=== PATIENT | male | born 1960 | race Caucasian/White ===

== ENCOUNTER 2023-06-23 21:01 | Inpatient (IN) ==
--- OUTSIDE RECORDS SUMMARY | 2023-06-23 21:05 | External Medical Summary | Summary of Care ---
Author Name Unknown Organization [facility] Address [address] [place] [address] Phone [phone] Care Team Providers Care Electrician Chief Name Role Phone Williams Alston MD Primary Care Provide r Reason for Visit * Reason Onset Date Comments Appointment 02/26/2023 Colonoscopy Encounter Details Date Type Department Care Team Description 02/26/[address] [id number] Williams Alston MD [address] [place] [address] [place] [address] Appointment (Colonoscopy ) Allergies Active Allergy Reactions Severity Noted Date Comments Other - Drugs Unknown 04/06/2004 horse serum Penicillins Hives 04/06/2004 documented as of this encounter (statuses as of 02/26/2023) Medications Medication Sig Dispensed Refills Start Date End Date Status Aspirin 81 MG Oral Tablet Delayed Release Take 1 Tablet by mouth in the morning. Every other day . 0 Active Atorvastatin Calcium 10 MG Oral Tablet (Lipitor)Indications:M ixed dyslipidemia TAKE 1 TABLET EVERY OTHER DAY 45 Tablet 1 01/08/2023 Active Hospital, Clinic, or Other Facility Administered Medication Ordered Dose Route Frequency Start Date End Date Status albuterol sulfate (PROVENTIL) (2.5 MG/3ML) 0.083% inhalation solution 2.5 mgIndications:COPD, mild (HCC) 2.5 mg NEBULIZER Q4H PRN 01/18/2017 Active documented as of this encounter (statuses as of 02/26/2023) Active Problems Problem Noted Date COPD, group A, by GOLD 2017 classificati on 11/15/2020 Overview: Per COPD GOLD Classification Hepatitis C virus infection cured after antiviral drug therapy 06/01/2020 Overview: HCV treated; SVR confirmed: 05/30/2020 Fatty liver 01/19/2019 Persistent insomnia 09/24/2012 Reflux esophagitis 04/06/2004 Mixed dyslipidemia Tobacco use disorder documented as of this encounter (statuses as of 02/26/2023) Resolved Problems Problem Noted Date Resolved Date Chronic hepatitis C without hepatic coma 019 06/01/2020 Overview: HCV treated; SVR confirmed: 05/30/2020 Elevated LFTs 07/16/2018 06/01/2020 Overview: HCV treated; SVR confirmed: 05/30/2020 Tubular adenoma of colon 05/05/2014 018 COPD, mild 09/24/2012 11/17/2020 Overview: Per COPD GOLD Classification Cervicalgia 04/06/2004 05/07/2018 Asthma in COPD 09/24/2012 documented as of this encounter (statuses as of 02/26/2023) Immunizations Name Administration Dates Next Due COVID-19 mRNA, LNP-s, No Pre serve, 2-Dose Series ([employer]) 10/19/2020,09/05/2020 HEP A - Hepatitis A (Adult > 18 yrs) 08/20/2019, 02/19/2019 Hepatitis B, 20+ yrs 08/20/2019,03/23/2019,02/19 PPD 04/20/2021 Pneumococcal Conjugate Vacci ne, 20-valent ([id number]) 06/26/2022 Pneumococcal Polysaccharide PPV23 (Pneumovax) 04/12/2014 Seasonal Influenza, PF, 6 mo ns & Above, IM , (Flulaval) 02/26/2023,06/26/2022 TDAP (age 10 and older)(Boostrix) 11/21/2015 TDAP (age 11 and older)(Adacel) 04/01/2008 documented as of this encounter Social History Tobacco Use Types Packs/Day Years Used Date Smoking Tobacco: Every Day Cigarettes 0.5 30 Smokeless Tobacco: Never Alcohol Use Standard Drinks/Week Comments No 0 (1 standard drink = 0.6 oz pur e alcohol) Food Insecurity Answer Date Recorded Within the past 12 months, y ou worried that your food would run out before you got money to buy more. Never true 09/23/2019 Within the past 12 months, t he food you bought just didn't last and you didn't have money to get more. Never true 09/23/2019 Sex Assigned at Date Recorded Not on file Job Start Date Occupation Industry Not on file Not on file Not on file documented as of this encounter Miscellaneous Notes * Telephone Encounter - DERICK Schmidt - 02/26/2023 9:34 AM EDT Jus muñoz scheduled for colonoscopy for: Special screening for malignant neoplasms, colon [Z12.11] documented in this encounter Plan of Treatment Upcoming Encounters Date Type Specialty Care Team Description 10/22/2023 Office Visit Family Medicine Williams Alston MD [address] [place] [address] [place] [facility] [address] Scheduled Procedures Name Priority Associated Diagnoses Date/Ti me COLONOSCOPY FLEXIBLE PROXIMAL DIAGNOSTIC Recall History of colon polyps Health Maintenance Due Date Last Done Comments DISCUSS TOBACCO CESSATION (REFER TO SMARTSET #8873) 1960 Alpha-1 Antitrypsin 12/21/1977 Zoster Vaccines (1 of 2) 12/21/2009 Depression Screening 07/14/2020 07/14/2019 COVID-19 Vaccine (3 - Pfizer series) 12/14/2020 10/19/2020, 09/05/2020 COLONOSCOPY-EVERY 3 YRS AGES 18-100 03/14/2023 03/14/2020, 03/14/2020, 01/19/2016, Additional history exists O2 ASSESSMENT COMPLETED IN PAST YEAR FOR COPD 07/10/2023 02/26/2023 Diabetes Screening 01/19/2025 01/19/2022, 1 07/31/2019, 02/26/2020, Additional history exists DTaP,Tdap,and Td Vaccines (3 - Td or Tdap) 11/20/2025 11/21/2015, 04/01/2008 Lipid Panel 01/19/2027 01/19/2022, 05/04, 08/31/2019, Additional history exists Hepatitis B Completed 08/20/2019, 03/04, 02/19/2019 COLONOSCOPY-EVERY 5 YRS AGES 18-100 Discontinued 03/14/2020, 03/14/2020, 01/19/2016, Additional history exists Pneumococcal Vaccine: Pediatrics (0 to 5 Years) and At-Risk Patients (6 to 64 Years) Completed 06/26/2022, 04/12/2014 Influenza Vaccine (FLU shot) Completed 02/26/2023, 06/26/2022 GARDASIL-HPV IMMUNIZATION SERIES Aged Out No longer eligible based on patient's age to complete this topic MENINGOCOCCAL (MENACTRA/MENVEO) Aged Out No longer eligible based on patient's age to complete this topic documented as of this encounter Medical Devices Not on filedocumented as of this encounter Care Teams Electrician Chief Relationship Specialty Start Date End Date Williams Alston MD [address] [place] [address] [facility] [id number] PCP - General Family Medicine 05/07/18 documented as of this encounter
--- OUTSIDE RECORDS SUMMARY | 2023-06-23 21:05 | External Medical Summary | Summary of Care ---
Author Name Unknown Organization [facility] Address [address] [place] [address] Phone [phone] Care Team Providers Care Gasser Machine Operator Name Role Phone Hortensia Alston MD Primary Care Provide r Reason for Visit * Reason Comments eRx-Medication Refill Encounter Details Date Type Department Care Team Description 01/07/2023 Refill Family [address] [address] Hortensia Alston MD [address] [place], [place] [address] [id number] Mixed dyslipidemia Allergies Active Allergy Reactions Severity Noted Date Comments Other - Drugs Unknown 04/06/2004 horse serum Penicillins Hives 04/06/2004 documented as of this encounter (statuses as of 01/08/2023) Medications Medication Sig Dispensed Refills Start Date End Date Status Aspirin 81 MG Oral Tablet Delayed Release Take 1 Tablet by mouth in the morning. Every other day . 0 Active predniSONE 20 MG Oral Tablet (Deltasone)Indicat ions:Acute midline low back pain with right-sided sciatica 2 tablets daily for 5 days then 1 tablet daily 15 Tablet 0 12/25/2022 Active Atorvastatin Calcium 10 MG Oral Tablet (Lipitor)Indicatio ns:Mixed dyslipidemia TAKE 1 TABLET EVERY OTHER DAY 45 Tablet 1 01/08/2023 Active Atorvastatin Calcium 10 MG Oral Tablet (Lipitor)Indicatio ns:Mixed dyslipidemia take 1 tablet every other day 45 Tablet 1 06/12/2022 01/08/2023 Discontinued Hospital, Clinic, or Other Facility Administered Medication Ordered Dose Route Frequency Start Date End Date Status albuterol sulfate (PROVENTIL) (2.5 MG/3ML) 0.083% inhalation solution 2.5 mgIndications:COPD, mild (HCC) 2.5 mg NEBULIZER Q4H PRN 01/18/2017 Active documented as of this encounter (statuses as of 01/08/2023) Active Problems Problem Noted Date COPD, group A, by GOLD 2017 classificati on 11/15/2020 Overview: Per COPD GOLD Classification Hepatitis C virus infection cured after antiviral drug therapy 06/01/2020 Overview: HCV treated; SVR confirmed: 05/30/2020 Fatty liver 01/19/2019 Persistent insomnia 09/24/2012 Reflux esophagitis 04/06/2004 Mixed dyslipidemia Tobacco use disorder documented as of this encounter (statuses as of 01/08/2023) Resolved Problems Problem Noted Date Resolved Date Chronic hepatitis C without hepatic coma 019 06/01/2020 Overview: HCV treated; SVR confirmed: 05/30/2020 Elevated LFTs 07/16/2018 06/01/2020 Overview: HCV treated; SVR confirmed: 05/30/2020 Tubular adenoma of colon 05/05/2014 018 COPD, mild 09/24/2012 11/17/2020 Overview: Per COPD GOLD Classification Cervicalgia 04/06/2004 05/07/2018 Asthma in COPD 09/24/2012 documented as of this encounter (statuses as of 01/08/2023) Immunizations Name Administration Dates Next Due COVID-19 mRNA, LNP-s, No Pre serve, 2-Dose Series ([employer]) 10/19/2020,09/05/2020 HEP A - Hepatitis A (Adult > 18 yrs) 08/20/2019, 02/19/2019 Hepatitis B, 20+ yrs 08/20/2019,03/23/2019,02/19 PPD 04/20/2021 Pneumococcal Conjugate Vacci ne, 20-valent ([id number]) 06/26/2022 Pneumococcal Polysaccharide PPV23 (Pneumovax) 04/12/2014 Seasonal Influenza, Quadriva lent, No Preserve, 6 Mons & Above, IM 06/26/2022 TDAP (age 10 and older)(Boostrix) 11/21/2015 TDAP [...] encounter Miscellaneous Notes * Telephone Encounter - Scott Lyons RPh - 01/08/2023 11:13 AM EDTSigned Prescriptions: Disp Refills Atorvastatin Calcium 10 MG Oral Tablet (Li*45 Tab*1 Sig: TAKE 1 TABLET EVERY OTHER DAYAuthorizing Provider: HORTENSIA ALSTON User: SCOTT LYONS- documented in this encounter Plan of Treatment Upcoming Encounters Date Type Specialty Care Team Description 02/01/2023 Office Visit Family Medicine Hortensia Alston MD [address] [place] [address] [place] [facility] [address] Scheduled Procedures Name Priority Associated Diagnoses Date/Ti me COLONOSCOPY FLEXIBLE PROXIMAL DIAGNOSTIC Recall History of colon polyps Health Maintenance Due Date Last Done Comments DISCUSS TOBACCO CESSATION (REFER TO SMARTSET #3291) 1960 Alpha-1 Antitrypsin 12/21/1977 Zoster Vaccines (1 of 2) 12/21/2009 Depression Screening, Annual for Pts 12 and Over 07/14/2020 07/14/2019 COVID-19 Vaccine (3 - Pfizer series) 12/14/2020 10/19/2020, 09/05/2020 Influenza Vaccine (FLU shot) (#1) 2023 06/26/2022 COLONOSCOPY-EVERY 3 YRS AGES 18-100 03/14/2023 03/14/2020, 03/14/2020, 01/19/2016, Additional history exists O2 ASSESSMENT COMPLETED IN PAST YEAR FOR COPD 07/10/2023 07/10/2022 Diabetes Screening 01/19/2025 01/19/2022, 1 07/31/2019, 02/26/2020, [...] (6 to 64 Years) Completed 06/26/2022, 04/12/2014 GARDASIL-HPV IMMUNIZATION SERIES Aged Out No longer eligible based on patient's age to complete this topic MENINGOCOCCAL (MENACTRA/MENVEO) Aged Out No longer eligible based on patient's age to complete this topic documented as of this encounter Medical Devices Not on filedocumented as of this encounter Visit Diagnoses Diagnosis Mixed dyslipidemia Mixed hyperlipidemia documented in this encounter Care Teams Gasser Machine Operator Relationship Specialty Start Date End Date Hortensia Alston MD [address] [place] [address] [place] [facility] [address] PCP - General Family Medicine 05/07/18 documented as of this encounter
--- OUTSIDE RECORDS SUMMARY | 2023-06-23 21:05 | External Medical Summary ---
Author Name Unknown Address Unknown Organization [id number]:[facility] - [address] [facility] [address] Laboratory Report Ordering Provider Test Date Status LAVON BAZAN 02/27/2023 07:52:26 Final Observation Date Value Abnormality Reference (Units ) Status Triglyceride 02/27/2023 07:52:26 123 <=174 ( mg/dL) Final Triglyceride Reference Range s (mg/dL):
<150 Acceptable
150-174 Borderline high
175-499 High
>=500 Very high Cholesterol 02/27/2023 07:52:26 149 <200 (mg /dL) Final Total Cholesterol Reference Ranges (mg/dL):
<200 Desirable
200-239 Borderline high
>=240 High HDL 02/27/2023 07:52:26 37 Below low normal >39 (mg/dL) Final HDL Cholesterol Reference Ra nges (mg/dL):
>=60 High (Desirable)
<50 Low (Undesirable) For Females
<40 Low (Undesirable) For Males NON-HDL CHOLESTEROL 02/27/2023 07:52:26 112 <=159 (mg/dL) Final Non-HDL Cholesterol Referenc e Range (mg/dL):
<100 Target level for high risk ASCVD patient
<130 Optimal for general population
130-159 Near optimal for general population
160-189 Borderline High
190-219 High
>=220 Very High LDL, (calculated) 02/27/2023 07:52:26 87 <= 129 (mg/dL) Final LDL Cholesterol Reference Ra nges (mg/dL):
<70 Target level for high risk ASCVD patient
<100 Optimal for general population
100-129 Near optimal for general population
130-159 Borderline high
160-189 High
>=190 Very high Performing Location [facility] - [address] [place] [id number]
--- OUTSIDE RECORDS SUMMARY | 2023-06-23 21:05 | External Medical Summary | Summary of Care ---
Author Name Unknown Organization [facility] Address [address] [place] [address] Phone [phone] Care Team Providers Care Information Analyst Name Role Phone Williams Alston MD Primary Care Provide r Reason for Referral * Ancillary Services (Within 30 days (routine)) - Authorized Specialty Diagnoses / Procedures Referred By Contac t Referred To Contact Gastroenterology Diagnoses Special screening for malignant neoplasms, colon Williams Alston MD [address] [place] [address] [place] [id number] Referral ID Status Reason Start Date Expiration Date Visits Requested Visits Authorized [id number] Authorized Ancillary Services Required 02/26/2023 999 999 Question Answer Referral Priority Within 30 days (routine) Comments ALERT: Do not order for pediatric patients (18 years or younger). Cancel off screen and order PEDS GASTROENTEROLOGY CONSULT (Type: 1 visit only-Evaluate and Treat) The following Pt. Instructions are available: - Gastro Colonoscopy Prep Instructions [[id number]] - Gastro Colonoscopy Prep Instructions (Lao Version) [[id number]] Go to the Pt. Instructions section within the Visit Navigator to access. Colonoscopy ASGE Guidelines: Average risk screening (begin at age 50, 10 year intervals) ADDITIONAL INFORMATION 1. Is the patient on Coumadin? No 2. Is the patient on Pradaxa? No Reason for Visit * Reason Onset Date Comments Re-Check Medication Administration 02/26/2023 Flu an d/or Pneumo Inj Encounter Details Date Type Department Care Team Description 02/26/2023 Office Visit Family Medicine [address] [address] Williams Alston MD [address] [place] [address] [place] [address] Mixed dyslipidemia*; Special screening for malignant neoplasms, colon; Need for prophylactic vaccination and inoculation against influenza; COPD, group A, by GOLD 2017 classification (HCC); Fatty liver; Tobacco use disorder Allergies Active Allergy Reactions Severity Noted Date [...] OTHER DAY 45 Tablet 1 01/08/2023 Active predniSONE 20 MG Oral Tablet (Deltasone)Indicat ions:Acute midline low back pain with right-sided sciatica 2 tablets daily for 5 days then 1 tablet daily 15 Tablet 0 12/25/2022 02/26/2023 Discontinued Hospital, Clinic, or Other Facility Administered [...] mRNA, LNP-s, No Pre serve, 2-Dose Series (Redicam) 10/19/2020,09/05/2020 HEP A - Hepatitis A (Adult > 18 yrs) 08/20/2019, 02/19/2019 Hepatitis B, 20+ yrs 08/20/2019,03/23/2019,02/19 PPD 04/20/2021 Pneumococcal Conjugate Vacci ne, 20-valent ([id number]) 06/26/2022 Pneumococcal Polysaccharide PPV23 (Pneumovax) 04/12/2014 Seasonal [...] on file documented as of this encounter Last Filed Vital Signs Vital Sign Reading Time Taken Comments Blood Pressure 118/72 02/26/2023 8:34 AM EDT Pulse 75 02/26/2023 8:34 AM EDT Temperature 36.6 C (97.8 F) 02/26/2023 8:34 AM ED T Respiratory Rate - - Oxygen Saturation 98% 02/26/2023 8:34 AM EDT Inhaled Oxygen Concentration - - Weight 94.3 kg (208 lb) 02/26/2023 8:34 AM EDT Height 165.1 cm (5' 5") 02/26/2023 8:34 AM EDT Body Mass Index 34.61 02/26/2023 8:34 AM EDT documented in this encounter Progress Notes * Williams Alston MD - 02/26/2023 8:40 AM EDT Subjective: Jus Castano is a 62 year old male. Chief Complaint Patient presents with Re-Check Medication Administration Flu and/or Pneumo Inj HPI: Brief Clinical History Mr. Castano is a 62 year old man last seen in Family Medicine 2 months ago (12-25-22). He has h/o COPD and COPD, group A, by GOLD 2017 classification (HCC). Has been having some joint stiffness. Loosens up after he moves around. Occasionally takes ibuprofen. Was seen December for sciatica and is improved now. No trouble with his breathing. Has cut back on smoking and has tried to quit multiple times. Has gone 4 days without smoking as the longest. He and his have both been trying. Declines Shingrix. Is not planning on getting COVID booster. Agrees to influenza vaccine today. Agrees to colonoscopy. Due for 3 year follow-up. Denies any heartburn. Lipid Panel Results: Results for orders placed or performed in visit on 06/07/12 LIPID PANEL Result Value Ref Range HOURS FASTING 12 hours Triglycerides 58 <200 mg/dL Cholesterol 111 <200 mg/dL HDL Cholesterol 40 >39 mg/dL Cholesterol-HDL Ratio 2.8 LDL Cholesterol 59 0 - 129 mg/dL Results for orders placed or performed in visit on 01/19/22 LIPID PANEL WITH DIRECT LDL IF TG IS HIGH Result Value Ref Range Triglycerides 162 <=174 mg/dL Cholesterol 168 <200 mg/dL HDL Cholesterol 38 (L) >39 mg/dL Non-HDL Cholesterol 130 <=159 mg/dL LDL Cholesterol 98 <=129 mg/dL ALT Results: Lab Results Component Value Date/Time ALT - [facility] 26 01/19/2022 09:20 AM ALT - [facility] 28 11/02/2020 12:07 PM ALT - [facility] 21 05/30/2020 11:30 AM ALT - [facility] 29 02/26/2020 02:57 PM ALT - [facility] 36 12/25/2019 02:50 PM Results for orders placed or performed in visit on 09/05/22 NM MYOCARDIAL PERFUSION IMAGING SPECT MULTIPLE STUDIES WITH PHARMACOLOGIC INTERVENTION Result Value Ref Range LEFT VENTRICULAR EJECTION FRACTION 67 % PMH: Patient Active Problem List Diagnosis Code Reflux esophagitis K21.00 Mixed dyslipidemia E78.2 Persistent insomnia G47.00 Tobacco use disorder F17.200 Fatty liver K76.0 Hepatitis C virus infection cured after antiviral drug therapy Z86.19 COPD, group A, by GOLD 2017 classification ([facility]) J44.9 Current Outpatient Medications Medication Sig Dispense Refill Aspirin 81 MG Oral Tablet Delayed Release Take 1 Tablet by mouth in the morning. Every other day . Atorvastatin Calcium 10 MG Oral Tablet (Lipitor) TAKE 1 TABLET EVERY OTHER DAY 45 Tablet 1 Current Facility-Administered Medications Medication Dose Route Frequency Provider Last Rate Last Admin albuterol sulfate (PROVENTIL) (2.5 MG/3ML) 0.083% inhalation solution 2.5 mg 2.5 mg Nebulizer Q4H PRN Annette Mahan PA-C 2.5 mg at 01/18/17 0901 Past Medical History: Diagnosis Date Asthma with COPD (chronic obstructive pulmonary disease) ([facility]) Cervicalgia [address] Grider Mixed dyslipidemia Persistent insomnia 09/24/2012 Reflux esophagitis 2004 Tobacco use disorder Tubular adenoma of colon 05/05/14 Past Surgical History: Procedure Laterality Date COLONOSCOPY, DIAGNOSTIC (RECTUM) 04/14/2013 COLONOSCOPY FLEXIBLE PROXIMAL DIAGNOSTIC performed by John Lorenz MD at ENDOSCOPY [facility] COLONOSCOPY, DIAGNOSTIC (RECTUM) 05/05/2014 adenomatous polyp/COLONOSCOPY FLEXIBLE PROXIMAL DIAGNOSTIC performed by John Lorenz MD at ENDOSCOPY [facility] COLONOSCOPY, DIAGNOSTIC (RECTUM) 01/19/2016 hyperplastic polyps, repeat 5 yrs/COLONOSCOPY FLEXIBLE PROXIMAL DIAGNOSTIC performed by John Lorenz MD at ENDOSCOPY [facility] COLONOSCOPY, DIAGNOSTIC (RECTUM) 03/14/2020 hyperplastic polyps, diverticulosis, repeat 3 yrs / COLONOSCOPY FLEXIBLE PROXIMAL DIAGNOSTIC performed by John Lorenz MD at ENDOSCOPY [facility] WITHOUT AIR WO KUB 04/07/2004 negative INFORMATION drill bit injury to left eye. INFORMATION 09/07/2014 lap hand assist R hemicolectomy - Dr. Ford Melton [facility] REMOVAL OF APPENDIX REMOVE GALLBLADDER Social History Socioeconomic History Marital status: Spouse name: Not on file Number of children: 2 Years of education: Not on file Highest education level: Not on file Occupational History Not on file Tobacco Use Smoking status: Every Day Packs/day: 0.50 Years: 30.00 Pack years: 15.00 Types: Cigarettes Smokeless tobacco: Never Vaping Use Vaping Use: Never used Substance and Sexual Activity Alcohol use: No Drug use: No Sexual activity: Yes Partners: Female Other Topics Concern Not on file Social History Narrative Not on file Social Determinants of Health Financial Resource Strain: Not on file Food Insecurity: Not on file Transportation Needs: Not on file Physical Activity: Not on file Stress: Not on file Social Connections: Not on file Intimate Partner Violence: Not on file Housing Stability: Not on file Review of patient's allergies indicates: Allergen Reactions Other - Drugs Unknown horse serum Penicillins Hives Objective: BP 118/72 | Pulse 75 | Temp 36.6 C (97.8 F) (Tympanic) | Ht 1.651 m (5' 5") | Wt 94.3 kg (208 lb) | SpO2 98% | BMI 34.61 kg/m | BSA 2.08 m Physical Exam: General: alert, healthy, no distress, well nourished, and well developed Head: Normocephalic, No masses, lesions, tenderness or abnormalities Eye Exam: PERRLA, extraocular movements intact, conjunctiva are pink and non- injected, sclera clear Ears: External ears normal, Canals clear, TM's Normal Nose: no mucosal erythema, no mucosal edema, no purulent discharge Oropharynx: no exudate, no erythema, lips, buccal mucosa, and tongue normal, and mucous membranes are moist Neck: supple, no adenopathy, no bruits Heart: regular rate & rhythm, no murmur, and no gallops Lungs: chest symmetric with normal AP diameter, no chest deformities noted, no chest wall tenderness, lungs clear to auscultation Extremities: no edema, no clubbing, no cyanosis Neuro Exam: alert & oriented x 3 with fluent speech, no focal motor/sensory deficits, gait normal Extensive ROS Constitutional (f/c/wt/vision/hearing): Negative Resp (cough/sob/amado): see above hpi CV (cp/palp/fluttering/diaphoresis/amado/pnd):Negative GI (n/v/d/hrtburn): Negative Endo (hair/cold or heat intol/ 3 p's): Negative Neuro (shaking/weak/fatigu/parasthesi/): Negative Skin (rash/easy bruis/xerosis): Negative Psy (si/hi/halluc/): Negative (nocturia/hesit/drib/sexual review): Negative Lymph (swollen glands/b sx's/: Negative ASSESSMENT: Mixed dyslipidemia (Primary)--controlled. Due for labs. Will return tomorrow for fasting labs. - COMPREHENSIVE METABOLIC PANEL; Future; Expected date: 02/26/2023 - LIPID PANEL WITH DIRECT LDL IF TG IS HIGH; Future; Expected date: 02/26/2023 Special screening for malignant neoplasms, colon--due for 3 year follow-up. Has h/o polyps. - COLONOSCOPY, GI REFERRAL OP Need for prophylactic vaccination and inoculation against influenza - INFLUENZA VACC, QUAD, PF, 6 MONTHS & UP, 0.5 ML, IM COPD, group A, by GOLD 2017 classification (HCC)--no current breathing issues. Continues to work onquitting smoking. Fatty liver--stable. Check labs Tobacco use disorder--counseled on quitting. Follow Up: Return in about 6 months (around 08/27/2023). PLAN: Continue present medication(s): Study(ies) ordered: Colonoscopy Immunization(s) ordered: Influenza vaccine Schedule labs: CMP and Lipid panel Patient education: counseled on smoking cessation and vaccines. Follow up: in 6 month(s). Williams Alston MD documented in this encounter Nursing Notes * Tania Samuels LPN - 02/26/2023 8:34 AM EDT 6 month recheck Joint stiffness documented in this encounter Plan of Treatment Scheduled Orders Name Type Priority Associated Diagnoses Orde r Schedule COMPREHENSIVE METABOLIC PANEL Lab Routine Mixed dyslipidemia Expected: 02/26/2023 (Approximate), Expires: 02/26/2024 LIPID PANEL WITH DIRECT LDL IF TG IS HIGH Lab Routine Mixed dyslipidemia Expected: 02/26/2023, Expires: 02/27/2024 Scheduled Procedures Name Priority Associated Diagnoses Date/Ti me COLONOSCOPY FLEXIBLE PROXIMAL DIAGNOSTIC Recall History of colon polyps Scheduled Referrals Name Type Priority Associated Diagnoses Orde r Schedule COLONOSCOPY, GI REFERRAL OP Referral Within 30 days (routine) Special screening for malignant neoplasms, colon Ordered: 02/26/2023 Health Maintenance Due Date Last Done Comments DISCUSS TOBACCO CESSATION (REFER TO SMARTSET #[id number]) 1960 Alpha-1 Antitrypsin 12/21/1977 Zoster Vaccines (1 [...] of this encounter Visit Diagnoses Diagnosis Mixed dyslipidemia- Primary Mixed hyperlipidemia Special screening for malignant neoplasms, colon Need for prophylactic vaccination and inoculation against influenza COPD, group A, by GOLD 2017 classification (HCC) Fatty liver Other chronic nonalcoholic liver disease Tobacco use disorder documented in this encounter Care Teams Information Analyst Relationship Specialty Start Date End Date Williams lAston MD [address] [place] [address] [place] [address] PCP - General Family Medicine 05/07/18 documented as of this encounter
--- OUTSIDE RECORDS SUMMARY | 2023-06-23 21:05 | External Medical Summary | Summary of Care ---
Author Name Unknown Organization [facility] Address [address] [place] [address] Phone [phone] Care Team Providers Care Commercial Lending Assistant Name Role Phone Williams Alston MD Primary Care Provide r Reason for Visit * Reason Onset Date Comments Appointment 02/26/2023 Colonoscopy Encounter Details Date Type Department Care Team Description 02/26/[address] [address] Williams Alston MD [address] [place] [address] [place] [address] Appointment (Colonoscopy ) Allergies Active Allergy Reactions [...] mRNA, LNP-s, No Pre serve, 2-Dose Series ([employer]) 10/19/2020,09/05/2020 HEP A - Hepatitis A (Adult > 18 yrs) 08/20/2019, 02/19/2019 Hepatitis B, 20+ yrs 08/20/2019,03/23/2019,02/19 PPD 04/20/2021 Pneumococcal Conjugate Vacci ne, 20-valent ([id number]) 06/26/2022 Pneumococcal Polysaccharide PPV23 (Pneumovax) 04/12/2014 Seasonal [...] Miscellaneous Notes * Telephone Encounter - DERICK Corbin - 02/26/2023 11:19 AM EDT Spoke to pt, colonoscopy scheduled on 07/04 cassidy nitesh * Telephone Encounter - DERICK Schmidt - 02/26/2023 9:34 AM EDT Jus muñoz scheduled for colonoscopy for: Special screening for malignant neoplasms, colon [Z12.11] documented in this encounter Plan of Treatment Upcoming Encounters Date Type Specialty Care Team Description 07/04/2023 Hospital Encounter Endoscopy John Lorenz MD [address] [place] [address] 07/04/2023 Surgery Endoscopy John Lorenz MD [address] [place] [address] COLONOSCOPY FLEXIBLE PROXIMAL DIAGNOSTIC 10/22/2023 Office Visit Family Medicine Williams Alston MD [address] [place] [address] [place] [address] Scheduled Procedures Name Priority Associated Diagnoses Date/Ti me COLONOSCOPY FLEXIBLE PROXIMAL DIAGNOSTIC Recall History of colon polyps Special screening for malignant neoplasms, colon 07/04/2023 8:30 AM EST Health Maintenance Due Date Last Done Comments DISCUSS TOBACCO CESSATION (REFER TO SMARTSET #[id number]) 1960 Alpha-1 Antitrypsin 12/21/1977 Zoster Vaccines (1 [...] filedocumented as of this encounter Care Teams Commercial Lending Assistant Relationship Specialty Start Date End Date Williams Alston MD [address] [place] [address] [place] [address] PCP - General Family Medicine 05/07/18 documented as of this encounter
--- OUTSIDE RECORDS SUMMARY | 2023-06-23 21:05 | External Medical Summary ---
Author Name Unknown Address Unknown Organization K[facility] - [address] [place] [address] Laboratory Report Ordering Provider Test Date Status LAVON BAZAN 02/27/2023 07:52:26 Final Observation Date Value Abnormality Reference (Units ) Status BUN 02/27/2023 07:52:26 17 6-20 (mg/dL) Final Creatinine 02/27/2023 07:52:26 0.9 0.6-1.2 (mg/dL) Final Glomerular filtration rate/1.73 sq M.predicted [Volume Rate/Area] in Serum, Plasma or Blood by Creatinine-based formula (CKD-EPI) 02/27/2023 07:52:26 >90 >=60 (mL/min) Final eGFR is calculated based on the CKD-EPI 2020 equation SODIUM 02/27/2023 07:52:26 137 135-146 (m mol/L) Final Potassium 02/27/2023 07:52:26 4.4 3.5-5.1 (m mol/L) Final Cl 02/27/2023 07:52:26 104 98-107 (mm ol/L) Final CO2 02/27/2023 07:52:26 24 22-32 (mmo l/L) Final Anion gap 02/27/2023 07:52:26 9 7-15 (mmol /L) Final Glucose 02/27/2023 07:52:26 101 70-120 (mg /dL) Final Albumin 02/27/2023 07:52:26 4.5 3.8-5.0 (g /dL) Final AST (Aspartate aminotransferase) 02/27/2023 07:52:26 24 10-50 (U/L) Final Alk Phos 02/27/2023 07:52:26 70 35-130 (U/ L) Final Bilirubin, Total 02/27/2023 07:52:26 0.6 <=1 .2 (mg/dL) Final Calcium 02/27/2023 07:52:26 9.4 8.4-10.2 ( mg/dL) Final Protein 02/27/2023 07:52:26 6.6 6.0-8.3 (g /dL) Final ALT (Alanine aminotransferase) 02/27/2023 07:52:26 38 10-50 (U/L) Final Performing Location [facility] [place] [address] [facility] [address]
[2023-06-23] MEDS ORDERED: MoRPHine SULFATE 4 MG/ML 1 ML CARP\\VIAL IV STA (21:10)
[2023-06-23] MEDS ORDERED: SODIUM CHLORIDE 0.9% 500 ML IV STA (21:10)
[2023-06-23] MEDS ORDERED: ONDANSETRON INJ 2 MG/ML 2 ML VIAL IV STA (21:15)
--- NOTE | 2023-06-23 21:15 | Emergency Department Note ---
Impression & Plan STEMI (ST elevation myocardial infarction), Current smoker, Hyperglycemia ED Provider Note NAME: BINH SUTHERLAND AGE: 62 SEX: M : 1960 ARRIVES VIA: Ambulance INFORMANT: Patient, ED PROVIDER(S): Jaylen Myers MD CHIEF COMPLAINT: Chest pain MEDICAL DECISION MAKING: Patient presented due to concern for chest pain. I did review prehospital EKGs which did show possible peaked T waves in V2 and V3. No obvious STEMI. Patient's history was concerning and repeat EKGs were obtained at presentation as well as another repeat minutes thereafter. The patient was ordered blood work chest x-ray as well as nitro and morphine. The patient did progress to show a STEMI on second EKG. Code heart alert was initiated. The patient did have angiographies ordered in the event that this was not a STEMI and potentially other pathology given the report of slurred speech although upon presentation the patient did not have any evidence of strokelike symptoms on exam and thus these were canceled. I did reassess the patient whose pain had improved from about an 8 to a 5. I did speak with the class a regional truck driver Dr. Burciaga who agreed with heparin but deferred any additional antiplatelet therapy until that he was in the Chief Business Officer. Heparin was ordered. I did speak with the on-call hospitalist Dr. Whaley who did make the intensive care unit where [facility]. Patient's blood work shows a white count of 13 with mild anemia hemoglobin 13.6. Platelet count is unremarkable. Kidney function unremarkable with prerenal azotemia. Blood sugar 196. Initial troponin not elevated. Critical Care: I have personally spent 35 minutes of critical care time in direct management of this patient. This includes bedside care, interpretation of diagnostic studies, and testing, discussion with consultants, patient, and family members, and other require inpatient management activities. This 35 minutes is in excess of all separately billable procedures. Discussion w/ other healthcare providers: Dr. Burciaga class a regional truck driver Dr. Whaley inpatient medicine service [facility] with Dr. Miranda intensive care unit Prior /Outside records reviewed: none Differential diagnosis: Cardiac ischemia, aortic dissection, pulmonary embolism, pneumothorax, pneumonia, pericarditis, myocarditis, GERD, cholecystitis, pancreatitis, musculoskeletal, as well as other pathologies were considered. Diagnostics, as interpreted by me: ECG: Normal sinus rhythm, rate of 64, normal intervals, normal axis, Q waves noted anteriorly with peaked T waves V2 through V4. Repeat EKG interpreted by me Sinus, rate of 66, normal intervals, normal axis, worsening elevation in V2 V3 with concavity noted in V4 acute STEMI Cardiac monitoring: An order was placed for continuous cardiac monitoring. The monitor shows a rate of 64 with sinus rhythm. Patient was placed on pulse oximetry Medical decision rules: Heart score Imaging studies: I informally interpreted the patient's chest x-ray which shows cardiomegaly without obvious pneumonia or pneumothorax with formal report to follow. HPI: Patient presents due to concern for chest pain that began around 8pm this evening while watching football. Patient states that he went to take shower and that the pain seemed to get worse. Patient states that the pain was left-sided did go to his arm neck and jaw. reported that he had some slurred speech at the time. The patient did feel as though he was having terrible indigestion which caused him to vomit. The patient did receive 324 of aspirin as well as a nitro in route. He does not think that this helped with his pain. The patient denies any cough or fever. He does use tobacco. Patient denies any falls or trauma. Patient denies any leg swelling or calf pain no prior history of DVT or PE PAST MEDICAL HISTORY: See Below PAST SURGICAL HISTORY: See Below SOCIAL HISTORY: See Below HOME MEDICATIONS: See Below ALLERGIES: See Below VITALS: See Below PHYSICAL EXAMINATION: GENERAL: Uncomfortable in appearance. EYE EXAM: Normal conjunctiva. PERRL, no anisocoria and EOM's grossly intact w/o pain. OROPHARYNX: Moist mucus membranes, grossly normal dentition. NECK: Supple, no nuchal rigidity, no adenopathy, non-tender. No signs of meningismus. FROM of the neck with good chin to chest and neck extension. No stridor. LUNGS: Clear to auscultation. Normal chest wall mechanics. HEART: NSR, no MRG. ABDOMEN: Abdomen soft, non-tender, no masses, no rebound or guarding. BACK: No CVA TTP. SKIN: No rashes and no bruising. UPPER EXTREMITIES: Upper extremities are grossly normal. LOWER EXTREMITIES: Grossly normal, no edema. NEURO EXAM: A&O x3, cranial nerves II-XII grossly intact, normal speech, moves all 4 extremities. No sensory deficits. 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: No Beliefs That Will Affect Care: None Current Living Situation: Spouse Current Living Situation Comment: with Audrey Feels Safe at Home: Yes Safety Concerns: Feels Safe At This Time Assistive Devices: Denture - Upper and Glasses Assistive Devices Comment: At home Allergies Allergies Allergy/AdvReac Type Severity Reaction Status Date / Time Penicillins Allergy Intermediate HIVES Verified 06/23/23 23:02 Home Meds Home Medications Medication Instructions Recorded Confirmed aspirin 81 mg tablet,delayed 81 mg PO DAILY 06/23/23 06/23/23 release atorvastatin 10 mg tablet 10 mg PO DAILY 06/23/23 06/23/23 Results & Data (ED) Vital Signs Vital Signs - 24 hr 06/23/23 21:05 06/23/23 21:05 06/23/23 21:15 Temperature 36.6 C Temperature Source Oral Pulse Rate 77 62 Pulse Rate [Apical] Pulse Rate from SpO2 Sensor Pulse Rhythm Regular Regular Pulse Rhythm [Apical] Pulse Strength Normal Pulse Strength [Apical] Respiratory Rate 18 16 Respiratory Effort / Characteristics Non-Labored Spontaneous Respiratory Depth Normal Respiratory Pattern Regular Blood Pressure 165/93 H Blood Pressure [Left Arm] Blood Pressure Mean 117 Blood Pressure Mean [Left Arm] Blood Pressure Position Semi-fowlers Blood Pressure Position [Left Arm] Pulse Oximetry 97 97 97 Oxygen Delivery Method Room Air Room Air Room Air Oxygen Flow Rate 0 Sepsis Recent Fever Within 48 Hours No Sepsis New/Unexplained Change in Mental Status No Sepsis Action Taken by Nursing No Action Required 06/23/23 21:15 06/23/23 21:20 06/23/23 21:30 Temperature Temperature Source Pulse Rate 73 86 Pulse Rate [Apical] Pulse Rate from SpO2 Sensor 80 Pulse Rhythm Pulse Rhythm [Apical] Pulse Strength Pulse Strength [Apical] Respiratory Rate 25 H Respiratory Effort / Characteristics Respiratory Depth Respiratory Pattern Blood Pressure 149/81 H Blood Pressure [Left Arm] Blood Pressure Mean 110 Blood Pressure Mean [Left Arm] Blood Pressure Position Blood Pressure Position [Left Arm] Pulse Oximetry 97 Oxygen Delivery Method Oxygen Flow Rate Sepsis Recent Fever Within 48 Hours Sepsis New/Unexplained Change in Mental Status Sepsis Action Taken by Nursing 06/23/23 21:30 06/23/23 21:38 06/23/23 21:40 Temperature Temperature Source Pulse Rate 62 65 Pulse Rate [Apical] 67 Pulse Rate from SpO2 Sensor 62 64 Pulse Rhythm Pulse Rhythm [Apical] Regular Pulse Strength Pulse Strength [Apical] Normal Respiratory Rate 31 H 18 17 Respiratory Effort / Characteristics Non-Labored Spontaneous Respiratory Depth Normal Respiratory Pattern Regular Blood Pressure Blood Pressure [Left Arm] 149/81 H Blood Pressure Mean Blood Pressure Mean [Left Arm] 103 Blood Pressure Position Blood Pressure Position [Left Arm] Semi-fowlers Pulse Oximetry 98 97 95 Oxygen Delivery Method Room Air Oxygen Flow Rate Sepsis Recent Fever Within 48 Hours Sepsis New/Unexplained Change in Mental Status Sepsis Action Taken by Nursing 06/23/23 21:40 06/23/23 21:41 06/23/23 21:41 Temperature 36.6 C Temperature Source Oral Pulse Rate 67 62 Pulse Rate [Apical] Pulse Rate from SpO2 Sensor 63 Pulse Rhythm Pulse Rhythm [Apical] Pulse Strength Pulse Strength [Apical] Respiratory Rate 18 20 Respiratory Effort / Characteristics Respiratory Depth Respiratory Pattern Blood Pressure 147/91 H 147/91 H Blood Pressure [Left Arm] Blood Pressure Mean 110 Blood Pressure Mean [Left Arm] Blood Pressure Position Blood Pressure Position [Left Arm] Pulse Oximetry 98 99 Oxygen Delivery Method Room Air Oxygen Flow Rate Sepsis Recent Fever Within 48 Hours Sepsis New/Unexplained Change in Mental Status Sepsis Action Taken by Usp Medications Current Medication List: was personally reviewed by me Laboratory Data Attestation: I reviewed the patient's lab results. 06/23/23 21:07 06/23/23 21:07 Lab Results 06/23/23 06/23/23 Range/Units 21:07 21:11 WBC 13.09 H (4.8-10.8) K/ul RBC 4.30 L (4.70-6.10) M/uL Hgb 13.6 L (14.0-18.0) g/dl POC Hgb 13.3 L (14.0-18.0) g/dl Hct 39.8 L (42.0-52.0) % POC Hct 39 L (42-52) % MCV 92.6 (80.0-100.0) fL MCH 31.6 (25.0-34.0) pg MCHC 34.2 (32.0-36.0) g/dL RDW Std Deviation 43.6 (36.4-46.3) fL RDW Coeff of Eddie 12.9 (11.5-14.5) % Plt Count 237 (130-400) K/uL MPV 9.6 (9.4-12.4) fL Immature Gran % (Auto) 0.5 % Neut % (Auto) 56.4 % Lymph % (Auto) 33.2 % [place] % (Auto) 6.7 % Eos % (Auto) 2.6 % Baso % (Auto) 0.6 % Neut # (Auto) 7.38 H (1.40-6.50) K/uL Lymph # (Auto) 4.34 H (1.20-3.40) K/uL [place] # (Auto) 0.88 H (0.11-0.59) K/uL Eos # (Auto) 0.34 (0.00-0.50) K/uL Baso # (Auto) 0.08 (0.00-0.20) K/uL Immature Gran # (Auto) 0.07 (0.01-0.20) K/uL PT 10.6 (9.0-12.0) Seconds INR 1.0 (0.9-1.1) APTT 22 (21-31) Seconds PTT Ratio 0.8 POC Sodium 139 (135-144) mmol/L Sodium 138 (136-145) mmol/L POC Potassium 3.7 (3.3-5.0) mmol/L Potassium 3.7 (3.5-5.1) mmol/L POC Chloride 102 (101-112) mmol/L Chloride 103 (98-107) mmol/L Carbon Dioxide 27 (21-32) mmol/L POC Total CO2 27 (24-31) mmol/L Anion Gap 8 (3-11) POC Anion Gap 14.0 L (16-25) mmol/L POC BUN 23 H (7-18) mg/dl BUN 26 H (6-23) mg/dl Creatinine 1.16 (0.6-1.4) mg/dl POC Creatinine 1.2 (0.6-1.3) mg/dl Est Cr Clr Drug Dosing 71.5 ml/min Est GFR ( Amer) 77.2 ml/min Est GFR (Non-Af Amer) 66.7 ml/min BUN/Creatinine Ratio 22.4 H (10-20) Glucose 196 H (70-99(Fasting)) mg/dl POC Glucose (other) 188 H (70-99) mg/dl Calcium 9.5 (8.6-10.3) mg/dl POC Ioniz Calcium Billie 1.17 (1.12-1.32) mmol/l Total Bilirubin 0.4 (0.2-1.0) mg/dl AST 15 (13-39) U/L ALT 25 (7-52) U/L Alkaline Phosphatase 60 (34-104) U/L Troponin I High Sens 13.6 (0-20) pg/ml Total Protein 7.0 (6.0-8.3) gm/dl Albumin 4.2 (3.4-5.0) gm/dl Globulin 2.8 (2.5-4.0) gm/dl Albumin/Globulin Ratio 1.5 (0.9-2) Lipase 24 (11-82) U/L Administered Medications Nitroglycerin (Nitroglycerin Sl 0.4 Mg/Tab Tab) 0.4 mg SL Q5M PRN PRN Reason: Chest Pain Stop: 07/23/23 21:09 Last Admin: 06/23/23 21:30 Dose: 0.4 mg Documented By: Admin: 06/23/23 21:16 Dose: 0.4 mg Documented By: EV Discontinued Medications Diphenhydramine HCl (Diphenhydramine 50 Mg/Ml Vial) Confirm Administered Dose 50 mg .ROUTE .STK-MED ONE Stop: 06/23/23 22:03 Last Admin: 06/23/23 22:16 Dose: 25 mg Documented By: KENYATTA Fentanyl Citrate (Fentanyl Citrate Pf 100 Mcg/2 Ml Vial) Confirm Administered Dose 100 mcg .ROUTE .STK-MED ONE Stop: 06/23/23 21:37 Last Increment: 06/23/23 22:16 Dose: 50 mcg Documented By: KENYATTA Heparin Sodium (Porcine) (Heparin Sod (Porcine) 1000 Unit/Ml) 5,000 units IV NOW ONE Stop: 06/23/23 21:21 Last Admin: 06/23/23 21:30 Dose: 5,000 units Documented By: VE Co-signed By: GLORIA Heparin Sodium (Porcine) (Heparin (Porcine) 1000 Unit/Ml 10 Ml (Chief Business Officer Use Only)) Confirm Administered Dose 10,000 units .ROUTE .STK-MED ONE Stop: 06/23/23 21:36 Last Admin: 06/23/23 22:15 Dose: 10,000 units Documented By: KENYATTA Heparin Sodium (Porcine) (Heparin (Porcine) 1000 Unit/Ml 10 Ml (Chief Business Officer Use Only)) Confirm Administered Dose 10,000 units .ROUTE .STK-MED ONE Stop: 06/23/23 21:57 Last Admin: 06/23/23 22:16 Dose: 1,000 units Documented By: KENYATTA Heparin Sodium/Sodium Chloride (Heparin In Nss Infusion 1000 Unit/500 Ml (2 U/Ml) Bag) Confirm Administered Dose 3,000 units IV .STK-MED ONE Stop: 06/23/23 21:37 Last Admin: 06/23/23 22:16 Dose: 3,000 units Documented By: KENYATTA Sodium Chloride (Nss) 500 mls @ 999 mls/hr IV .Q31M STA Stop: 06/23/23 21:40 Last Infusion: 06/23/23 22:48 Dose: Infused Documented By: Admin: 06/23/23 21:15 Dose: 999 mls/hr Documented By: EV Midazolam HCl (Midazolam Hcl 1 Mg/Ml 2ml Vial) Confirm Administered Dose 2 mg .ROUTE .STK-MED ONE Stop: 06/23/23 21:36 Last Admin: 06/23/23 22:16 Dose: 2 mg Documented By: KENYATTA Morphine Sulfate (Morphine Sulfate 4 Mg/Ml 1 Ml Carp\Vial) 4 mg IV NOW STA Stop: 06/23/23 21:11 Last Admin: 06/23/23 21:15 Dose: 4 mg Documented By: EV Nicardipine HCl (Nicardipine Hcl Inj 2.5 Mg/Ml 10 Ml Amp) Confirm Administered Dose 25 mg .ROUTE .STK-MED ONE Stop: 06/23/23 21:36 Last Admin: 06/23/23 22:16 Dose: 25 mg Documented By: KENYATTA Nitroglycerin/Dextrose (Nitroglycerin/D5w 100mcg/Ml 20ml Syr) Confirm Administered Dose 2,000 mcg .ROUTE .STK-MED ONE Stop: 06/23/23 21:37 Last Admin: 06/23/23 22:16 Dose: 2,000 mcg Documented By: [facility] Ondansetron HCl (Ondansetron Inj 2 Mg/Ml 2 Ml Vial) 4 mg IV NOW STA Stop: 06/23/23 21:16 Last Admin: 06/23/23 23:14 Dose: Not Given Documented By: [facility] Ticagrelor (Ticagrelor 90 Mg Tab) Confirm Administered Dose 180 mg .ROUTE .STK- MED ONE Stop: 06/23/23 22:20 Last Admin: 06/23/23 22:20 Dose: 180 mg Documented By: [facility] Discharge Plan Visit Data Chief Complaint: Chest Pain Stated Complaint: CHEST HEAVY, INDIGESTION, DIAPHORETIC ED Provider: Jaylen Myers Discharge Problem: STEMI (ST elevation myocardial infarction), Current smoker, Hyperglycemia Patient Disposition: Admitted As Inpatient Discharge Instructions Interventions: ED Discharge Assessment Last Done: 06/23/23 21:40 Discharge Problem: STEMI (ST elevation myocardial infarction) Qualifiers: Involved coronary artery: LAD coronary artery Qualified Code(s): I21.02 - ST elevation (STEMI) myocardial infarction involving left anterior descending coronary artery
[2023-06-23] MEDS: NITROGLYCERIN SL 0.4 MG/TAB TAB SL PRN ×2 (21:16→21:30)
[2023-06-23] MEDS ORDERED: HEPARIN SOD (PORCINE) 1000 UNIT/ML IV ONE (21:20)
[2023-06-23 21:25] LABS: iSTAT Creatinine 1.2 mg/dl (0.6-1.3); iSTAT Hemoglobin 13.3 g/dl (14.0-18.0); iSTAT Ionized Calcium 1.17 mmol/l (1.12-1.32); iSTAT Potassium 3.7 mmol/L (3.3-5.0)
[2023-06-23] MEDS ORDERED: MIDAZOLAM HCL 1 MG/ML 2ML VIAL ONE (21:35)
[2023-06-23] MEDS ORDERED: niCARdipine HCL INJ 2.5 MG/ML 10 ML AMP ONE (21:35)
[2023-06-23] MEDS ORDERED: HEPARIN (PORCINE) 1000 UNIT/ML 10 ML (CATH LAB USE ONLY) ONE ×2 (21:35→21:56)
[2023-06-23] MEDS ORDERED: NITROGLYCERIN/D5W 100MCG/ML 20ML SYR ONE (21:36)
[2023-06-23] MEDS ORDERED: fentaNYL citrate PF 100 MCG/2 ML VIAL ONE (21:36)
[2023-06-23 21:52] LABS: Albumin Globulin Ratio 1.5 (0.9-2); Albumin Level 4.2 gm/dl (3.4-5.0); BUN Creatinine Ratio 22.4 (10-20); Bilirubin,Total 0.4 mg/dl (0.2-1.0); Calcium 9.5 mg/dl (8.6-10.3); Creatinine Clr Calc Pharmacy 71.5 ml/min; Est GFR (African American) 77.2 ml/min; Est GFR (Non-African American) 66.7 ml/min; Globulin 2.8 gm/dl (2.5-4.0); Potassium 3.7 mmol/L (3.5-5.1)
[2023-06-23 21:55] LABS: Basophils # (auto) 0.08 K/uL (0.00-0.20); Basophils % (auto) 0.6 %; Eosinophils # (auto) 0.34 K/uL (0.00-0.50); Eosinophils % (auto) 2.6 %; Hematocrit (blood only) 39.8 % (42.0-52.0); Hemoglobin 13.6 g/dl (14.0-18.0); Immature Granulocytes # (auto) 0.07 K/uL (0.01-0.20); Immature Granulocytes % (auto) 0.5 %; Lymphocytes # (auto) 4.34 K/uL (1.20-3.40); Lymphocytes % (auto) 33.2 %; Mean Corpuscular Hemoglobin 31.6 pg (25.0-34.0); Mean Corpuscular Hgb Conc 34.2 g/dL (32.0-36.0); Mean Corpuscular Volume 92.6 fL (80.0-100.0); Mean Platelet Volume 9.6 fL (9.4-12.4); Monocytes # (auto) 0.88 K/uL (0.11-0.59); Monocytes % (auto) 6.7 %; Neutrophils # (auto) 7.38 K/uL (1.40-6.50); Neutrophils % (auto) 56.4 %; Platelet Count 237 K/uL (130-400); RDW Coefficient of Variation 12.9 % (11.5-14.5); RDW Standard Deviation 43.6 fL (36.4-46.3); White Blood Count 13.09 K/ul (4.8-10.8)
[2023-06-23 21:59] LABS: Troponin I High Sensitivity 13.6 pg/ml (0-20)
[2023-06-23] MEDS ORDERED: diphenhydrAMINE 50 MG/ML VIAL ONE (22:02)
[2023-06-23 22:07] LABS: Partial Thromboplastin Ratio 0.8; Partial Thromboplastin Time 22 Seconds (21-31); Prothrombin Time 10.6 Seconds (9.0-12.0)
[2023-06-23] MEDS ORDERED: TICAGRELOR 90 MG TAB ONE (22:19)
--- NOTE | 2023-06-23 22:28 | Cardiac Catheterization ---
Cardiac Cath Procedure Full Procedure Date June 23, 2023 Pre-Procedure Diagnosis Pre-Procedure Diagnosis: STEMI AUC Score AUC Score: 2 Post-Procedure Diagnosis Post-Procedure Diagnosis: Severe CAD and Successful PCI Procedure(s) Performed Procedure(s) Performed: Coronary Angiography and Drug Eluting Stent Preschool Program Director Adrienne Burciaga MD Estimated Blood Loss Estimated Blood Loss: None Medication(s) Medication(s): hep, ticagrelor and asa Summary of Findings 100% Prox LAD succesefully stented with a 2.75 mm x 22 LINA and post dilated with a 3.25x 15 mm balloon LM: No significant disease LAD: 100% prox LAD Circ: no significant disease RCA dominate no significant disease The lesion was crossed using a 3.5 EBU and a runthrew wire. A 2.5 x 15 mm balloon was used to predilated. 2.75 mm x 22 LINA was placed and post dilated with a 3.25x 15 mm balloon Hemodynamics Rest Ao:: 173/81 Final Ao: 161/95 LV: not done Recommendations Recommendations: PCI without planned CABG Radiation Exposure (mGy) 5.2 Contrast (mls) 105 Procedural Complication(s) none Disposition ICU I attest to the content of the Intraoperative Record and any orders documented therein. Any exceptions are noted below. ACC Data: Business Enterprise Officer Cardiac Status Clinical evaluation leading to the procedure STEMI CAD Presenation: STEMI Anginal Classification: CCS IV Heart Failure: No Cardiogenic Shock within 24 Hours: No Cardiac Arrest within 24 Hours: No Imaging Studies Past 6 Months: No Stress Studies Past 6 Months: No Standard Exercise Test: No Stress Echocardiogram: No Stress Testing w/SPECT MPI: No Cardiac CTA: No STEMI OR Non-STEMI Symptom Onset Date: 06/23/23 Symptom Onset Time: 08:00 Thrombolytics: No Coronary Anatomy Dominant: Right LAD (% Stenosis): Proximal (100) Diagnostic Physicians Name: Adrienne Burciaga MD Closure Device Percutaneous Entry Location: Radial Closure Device: Radial Band Recommendations: PCI without planned CABG PCI Indication: Immediate PCI for STEMI First Noted: First EKG Lesion Segment Name: LAD Culprit Artery: Yes Stenosis Prior to Rx (%): 100 Pre-Procedure RAIN Flow: 0 Previously Treated Lesion: No Lesion Complexity: Non-High/Non-C Lesion Length (mm): 20 Thrombus Present: Yes Bifurcation Lesion: No Guidewire Across Lesion: Yes
--- NOTE | 2023-06-23 22:30 | History & Physical Report ---
Date of Service June 23, 2023 Assessment & Plan (1) STEMI (ST elevation myocardial infarction): Plan: Cath History of Present Illness Chief Complaint: STEMI Primary Care Provider: Williams Alston MD 62 yo with chest pain and ant EKG elevations Allergies Allergy/AdvReac Type Severity Reaction Status Date / Time Penicillins Allergy Intermediate HIVES Unverified 09/07/14 10:39 Home Medications Medication Instructions Recorded Confirmed Type aspirin 81 mg tablet,delayed 81 mg PO DAILY 06/23/23 06/23/23 History release atorvastatin 10 mg tablet 10 mg PO DAILY 06/23/23 06/23/23 History Past Med/Surg History Social History Smoking Status: Current every day smoker Tobacco Type: Cigarettes Preferred Language: Kyrgyz Feels Safe at Home: Yes Review of Systems Additional Comments: Chest pain Physical Exam Respiratory: normal respiratory effort, lungs clear to auscultation Cardiovascular: RRR, no murmur, no edema Gastrointestinal (Abdomen): normal bowel sounds, soft, nontender, no hepatosplenomegaly Results & Data Vital Signs (Past 12 Hours) Vital Signs Temp Pulse Pulse Resp BP BP Pulse Ox 06/23/23 21:41 147/91 H 06/23/23 21:41 62 20 99 06/23/23 21:40 36.6 C 67 18 147/91 H 98 06/23/23 21:40 65 17 95 06/23/23 21:38 67 18 149/81 H 97 06/23/23 21:30 62 31 H 98 06/23/23 21:30 149/81 H 06/23/23 21:20 86 25 H 97 06/23/23 21:15 73 06/23/23 21:15 62 16 97 06/23/23 21:05 97 06/23/23 21:05 36.6 C 77 18 165/93 H 97 O2 Del Method O2 Flow Rate 06/23/23 21:41 06/23/23 21:41 06/23/23 21:40 Room Air 06/23/23 21:40 06/23/23 21:38 Room Air 06/23/23 21:30 06/23/23 21:30 06/23/23 21:20 06/23/23 21:15 06/23/23 21:15 Room Air 06/23/23 21:05 Room Air 0 06/23/23 21:05 Room Air Diagnostic Findings ANT MICK on EKG
--- NOTE | 2023-06-23 22:38 | Critical Care Consultation ---
Date of Consultation June 23, 2023 Assessment & Plan (1) STEMI (ST elevation myocardial infarction): (2) Current smoker: (3) Metabolic syndrome: (4) Obesity: (5) HLD (hyperlipidemia): Plan Reason Critically Ill: 62 YOM presents to the EMD for acute onset of chest pain STEMI alert. Taken urgently to laboratory scientist and received 1 LINA to LAD. To ICU for continued hemodynamic and symptom montioring. Neuro - No acute needs CAM ICU: NEGATIVE Cardiac - STEMI s/p LINA to LAD, HLD, Metabolic syndrome - Patient s/p LINA to LAD - Brilinta loaded in laboratory scientist - DAPT therapy per Cardiology- already ordered - ASA/Brilinta - High dose statin initiated by cardiology- lipid panel in morning - BB initiated by Cardiology - Risk modifications and guideline directed therapy based on HGB A1c and ECHO in morning - STOP BANG score- 7 HIGH RISK for DERICK- would recommend sleep study for evaluation of decreasing overall CV morbidity - Smoking Cessation education will need to be provided- PRN nicotine patch - EKG as needed for chest pain and daily- trend HsCTNI until peak Respiratory - current smoker - As above GI - No acute needs RENAL/LYTES - No acute needs - ICU electrolyte protocol - No acute needs ENDO - Hyperglycemia without diagnosis of diabetes - serum glucose noted >180- will add ACHS accu-checks with ICU hyperglycemic protocol - HGB A1c in am HEME - No acute needs - Leukocytosis likely reactionary ID - NO concerns at this time for acute infective process LINES/IV ACCESS - PIV Continue use of these lines DVT PROPHYLAXIS - SCDS, ambulation, ASA/Brilinta DISPO: ICU until hemodynamics and symptoms proven stable I have personally spent 45 minutes of critical care time in the direct management of this patient. This is a life/limb threatening event. This includes time spent evaluating patient, direct bedside care, chart review, placing orders, interpretation of diagnostic studies, discussion with consultants, patient, and family members, as well as other required patient management activities. This time is exclusive of all separately billable procedures, and teaching time and separate from and in addition to any other critical care service time. Thank you for allowing us to participate in the care of this patient. Please refer to my attending physician's documentation for any further recommendations. History of Present Illness Reason for Consultation: STEMI post LINA to LAD Requesting Physician: Maxx Whaley MD Attending Physician: Maxx Whaley MD History of Present Illness 62 YOM with past medical history of: HLD, HTN. Patient presented to the EMD today for evaluation of chest pain that started around 2030 this evening. Patient reports he ate dinner and sat down to watch the game. Pain started in the epigastric region as a burning sharp pain and thought it was indigestion. He took some antigas pills and went to take a shower. Pain continued to get worse in the shower and was then in the center of his chest. This was associated with feeling really hot, fuzzy vision, and nausea with vomiting. The pain continued to intensify in his chest and went up into his neck and jaw and into the top of his head and then with numbness and tingling in his bilateral arms and hands. His called EMS and he received aspirin and nitroglycerine, which did not relieve his symptoms. He underwent evaluation in the EMD and could not get pain free with morphine and nitroglycerine. Multiple ECGS were done which revealed loss of R wave progression and ST elevation in septal leads. Heart Alert was called and the patient was taken to the laboratory scientist suite. He received 1 LINA to the LAD. He arrived to the ICU pain free and states that his pain didn't go away until during the cath. ECG performed on arrival with no new changes. He is currently with favorable hemodynamics without vasoactive medications. Patient is retired, only previous medications were asa and low dose atorvastatin. He does not drink. He does Smoke. Smoking cessation education provided. CODE: FULL Allergies Allergy/AdvReac Type Severity Reaction Status Date / Time Penicillins Allergy Intermediate HIVES Verified 06/23/23 23:02 Home Medications Medication Instructions Recorded Confirmed Type aspirin 81 mg tablet,delayed 81 mg PO DAILY 06/23/23 06/23/23 History release atorvastatin 10 mg tablet 10 mg PO DAILY 06/23/23 06/23/23 History Patient History Medical History (Updated 06/23/23 @ 23:04 by YENI Adler) Obesity Current smoker HLD (hyperlipidemia) Family History (Updated 06/23/23 @ 22:58 by YENI Adler) Other Diabetes Heart disease Hypertension Social History Smoking Status: Current every day smoker Tobacco Type: Cigarettes Cigarettes Per Day: 10; Do You Dip or Chew Tobacco: No; Hx Alcohol Use: No Hx Substance Use: No Preferred Language: Indonesian Communication Ability: Effective 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 Beliefs That Will Affect Care: None Current Living Situation: Spouse Current Living Situation Comment: [place] Feels Safe at Home: Yes Assistive Devices: Denture - Upper and Glasses Review of Systems Review of Systems: REVIEW OF SYSTEMS: Constitutional: No fever, sweats or chills Eyes: No diplopia, no worsening or blurred vision ENT: normal hearing, no trouble swallowing Respiratory: No cough, sputum, dyspnea at rest or on exertion Cardiovascular: (+) chest pain, tightness(resolved), no palpitations Abdomen: No pain, nausea, vomiting, diarrhea or constipation Musculoskeletal: (+) chronic back and neck pain, No joint pain, calf pain, swelling Neurologic: (+) tingling in arms that comes and goes, No weakness, numbness/tingling, or balance problems Psychiatric: No anxiety or depression Skin: No rash or itch Physical Exam Physical Exam: PHYSICAL EXAM: General: awake, alert, no apparent distress Head: Normocephalic, atraumatic ENT: PERRLA, EOMI, no pharyngeal exudate, mucous membranes moist Neuro: AAO x 3, speech clear and appropriate, strength intact bilaterally 5/5, sensation intact and equal all extremities and dermatomes, no pronator drift Chest: equal rise and fall of the chest, no accessory muscle use, no heaves or thrills, Clear to auscultation, on room air, Cardiac: Regular rate and rhythm, telemetry reviewed- NSR, skin warm dry, cap refill <3 seconds, peripheral pulses +2 no JVD, no murmur, no edema, TR Band right radial- cap refil and sensation to hand and fingers is intact. GI: NABS x 4 quadrants, soft, nontender to palpation, no rebound, guarding or tenderness : Spontaneously voiding, no pain, no CVA tenderness, Extremities: Normal inspection, no peripheral edema or erythema, calfs nontender to palpation Psych: Normal mood and affect Skin: no rash or erythema Results & Data Results & Data Vital Signs (Past 12 Hours) Vital Signs Temp Pulse Pulse Resp BP BP Pulse Ox 06/23/23 21:41 147/91 H 06/23/23 21:41 62 20 99 06/23/23 21:40 36.6 C 67 18 147/91 H 98 06/23/23 21:40 65 17 95 06/23/23 21:38 67 18 149/81 H 97 06/23/23 21:30 62 31 H 98 06/23/23 21:30 149/81 H 06/23/23 21:20 86 25 H 97 06/23/23 21:15 73 06/23/23 21:15 62 16 97 06/23/23 21:05 97 06/23/23 21:05 36.6 C 77 18 165/93 H 97 O2 Del Method O2 Flow Rate 06/23/23 21:41 06/23/23 21:41 06/23/23 21:40 Room Air 06/23/23 21:40 06/23/23 21:38 Room Air 06/23/23 21:30 06/23/23 21:30 06/23/23 21:20 06/23/23 21:15 06/23/23 21:15 Room Air 06/23/23 21:05 Room Air 0 06/23/23 21:05 Room Air Laboratory Results Abnormal lab results 06/23/23 06/23/23 06/23/23 Range/Units 21:07 21:11 22:15 WBC 13.09 H (4.8-10.8) K/ul RBC 4.30 L (4.70-6.10) M/uL Hgb 13.6 L (14.0-18.0) g/dl POC Hgb 13.3 L (14.0-18.0) g/dl Hct 39.8 L (42.0-52.0) % POC Hct 39 L (42-52) % Neut # (Auto) 7.38 H (1.40-6.50) K/uL Lymph # (Auto) 4.34 H (1.20-3.40) K/uL Irion # (Auto) 0.88 H (0.11-0.59) K/uL Activ Coag Time Kaolin 277 H (94-140) SECONDS POC Anion Gap 14.0 L (16-25) mmol/L POC BUN 23 H (7-18) mg/dl BUN 26 H (6-23) mg/dl BUN/Creatinine Ratio 22.4 H (10-20) Glucose 196 H (70-99(Fasting)) mg/dl POC Glucose (other) 188 H (70-99) mg/dl Medications Administered Nitroglycerin (Nitroglycerin Sl 0.4 Mg/Tab Tab) 0.4 mg SL Q5M PRN PRN Reason: Chest Pain Stop: 07/23/23 21:09 Last Admin: 06/23/23 21:30 Dose: 0.4 mg Documented By: Admin: 06/23/23 21:16 Dose: 0.4 mg Documented By: EV Discontinued Medications Diphenhydramine HCl (Diphenhydramine 50 Mg/Ml Vial) Confirm Administered Dose 50 mg .ROUTE .STK-MED ONE Stop: 06/23/23 22:03 Last Admin: 06/23/23 22:16 Dose: 25 mg Documented By: KENYATTA Fentanyl Citrate (Fentanyl Citrate Pf 100 Mcg/2 Ml Vial) Confirm Administered Dose 100 mcg .ROUTE .STK-MED ONE Stop: 06/23/23 21:37 Last Increment: 06/23/23 22:16 Dose: 50 mcg Documented By: KENYATTA Heparin Sodium (Porcine) (Heparin Sod (Porcine) 1000 Unit/Ml) 5,000 units IV N OW ONE Stop: 06/23/23 21:21 Last Admin: 06/23/23 21:30 Dose: 5,000 units Documented By: EV Co-signed By: GLOIRA Heparin Sodium (Porcine) (Heparin (Porcine) 1000 Unit/Ml 10 Ml (End Trimmer Use Only)) Confirm Administered Dose 10,000 units .ROUTE .STK-MED ONE Stop: 06/23/23 21:36 Last Admin: 06/23/23 22:15 Dose: 10,000 units Documented By: KENYATTA Heparin Sodium (Porcine) (Heparin (Porcine) 1000 Unit/Ml 10 Ml (End Trimmer Use Only)) Confirm Administered Dose 10,000 units .ROUTE .STK-MED ONE Stop: 06/23/23 21:57 Last Admin: 06/23/23 22:16 Dose: 1,000 units Documented By: KENYATTA Heparin Sodium/Sodium Chloride (Heparin In Nss Infusion 1000 Unit/500 Ml (2 U/Ml) Bag) Confirm Administered Dose 3,000 units IV .STK-MED ONE Stop: 06/23/23 21:37 Last Admin: 06/23/23 22:16 Dose: 3,000 units Documented By: KENYATTA Sodium Chloride (Nss) 500 mls @ 999 mls/hr IV .Q31M STA Stop: 06/23/23 21:40 Last Infusion: 06/23/23 22:48 Dose: Infused Documented By: Admin: 06/23/23 21:15 Dose: 999 mls/hr Documented By: EV Midazolam HCl (Midazolam Hcl 1 Mg/Ml 2ml Vial) Confirm Administered Dose 2 mg .ROUTE .STK-MED ONE Stop: 06/23/23 21:36 Last Admin: 06/23/23 22:16 Dose: 2 mg Documented By: KENYATTA Morphine Sulfate (Morphine Sulfate 4 Mg/Ml 1 Ml Carp\Vial) 4 mg IV NOW STA Stop: 06/23/23 21:11 Last Admin: 06/23/23 21:15 Dose: 4 mg Documented By: EV Nicardipine HCl (Nicardipine Hcl Inj 2.5 Mg/Ml 10 Ml Amp) Confirm Administered Dose 25 mg .ROUTE .STK-MED ONE Stop: 06/23/23 21:36 Last Admin: 06/23/23 22:16 Dose: 25 mg Documented By: KENYATTA Nitroglycerin/Dextrose (Nitroglycerin/D5w 100mcg/Ml 20ml Syr) Confirm Administered Dose 2,000 mcg .ROUTE .STK-MED ONE Stop: 06/23/23 21:37 Last Admin: 06/23/23 22:16 Dose: 2,000 mcg Documented By: KENYATTA Ticagrelor (Ticagrelor 90 Mg Tab) Confirm Administered Dose 180 mg .ROUTE .STK- MED ONE Stop: 06/23/23 22:20 Last Admin: 06/23/23 22:20 Dose: 180 mg Documented By: KENYATTA ECG Additional Comments: 23-JUN-2023 22:32:59 [facility] ROUTINE RETRIEVAL Normal sinus rhythm Anteroseptal infarct (cited on or before 23-JUN-2023) Abnormal ECG When compared with ECG of 23-JUN-2023 21:18, (unconfirmed) Sinus rhythm has replaced Ectopic atrial rhythm Coding Level of Care Code 81565 CRITICAL CARE 1ST 30-74M Diagnoses STEMI (ST elevation myocardial infarction) I21.3 Current smoker F17.200 Metabolic syndrome E88.810 Obesity E66.9 HLD (hyperlipidemia) E78.5
[2023-06-23] MEDS ORDERED: NICOTINE 14 MG/24 HR PATCH TD PRN (23:00)
[2023-06-23] MEDS ORDERED: GLUCOSE 10 TAB/TUBE PO PRN (23:12)
[2023-06-23] MEDS ORDERED: GLUCOSE 40% GEL 15 GM TUBE PO PRN (23:12)
[2023-06-23] MEDS ORDERED: CARBOHYDRATES FOR HYPOGLYCEMIA PO PRN (23:12)
[2023-06-23] MEDS ORDERED: GLUCAGON FOR INJ 1 MG VIAL SQ PRN (23:12)
[2023-06-23] MEDS ORDERED: DEXTROSE 50% 50 ML SYRINGE IV PRN (23:12)
--- NOTE | 2023-06-23 23:17 | History & Physical Report ---
Date of Service June 23, 2023 Assessment & Plan (1) STEMI (ST elevation myocardial infarction): Plan: 62-year-old male with past medical history significant for hyperlipidemia, COPD, reflux esophagitis, fatty liver, hepatitis C virus infection cured after ant iviral drug therapy, ongoing tobacco abuse comes in because of chest pain and found to have ST elevated TN Acute ST elevated TN S/p cardiac cath and found 100% LAD lesion status post drug-eluting stent Cardiology started aspirin, Brilinta, metoprolol and high-dose statin To follow-up repeat troponins and echo Close monitoring ICU Postcardiac cath care as per cardiology Hyperlipidemia Started statin Follow lipid profile Tobacco abuse Needs counseling History of COPD Seems stable Not on any inhalers DVT prophylaxis SCDs for now Disposition ICU Full code Admission and Anticipated Discharge Date Admission Date: June 23, 2023 History of Present Illness Chief Complaint: ST elevated TN Primary Care Provider: Williams Alston MD 62-year-old male with past medical history significant for hyperlipidemia, COPD, reflux esophagitis, fatty liver, hepatitis C virus infection cured after antiviral drug therapy, ongoing tobacco abuse comes in because of chest pain and found to have ST elevated TN. Patient was watching football at 8 PM when he noticed pain in center of chest 7/10 severity radiating to his throat and head and he also episode of nausea and vomiting. Came to the ER and found to acute STEMI s/p cardiac cath and stent to the LAD. Currently pain resolved. Resting comfortably. Hemodynamically stable. Denies any headache. No blurred visions. No earache or runny nose or sore throat. No cough. Appetite is okay. No shortness of breath. No abdominal pain. Normal bowel and bladder movements. Prior to this episode he was ambulating and climbing steps okay as per patient. Past medical history. As mentioned above. Past surgical history. Colonoscopy. Laparoscopic right hemicolectomy for tubular adenoma of the hepatic flexure involving 50% circumflex. Appendectomy. Cholecystectomy. Social history. . Smokes half pack a day for last 30 years. No alcohol use. No drug use. Family history. Father had pneumonia. Paraplegia/stab wound. Mother had TN. Brother had prostate cancer. Sister had stroke. Allergies Allergy/AdvReac Type Severity Reaction Status Date / Time Penicillins Allergy Intermediate HIVES Verified 06/23/23 23:02 Home Medications Medication Instructions Recorded Confirmed Type aspirin 81 mg tablet,delayed 81 mg PO DAILY 06/23/23 06/23/23 History release atorvastatin 10 mg tablet 10 mg PO DAILY 06/23/23 06/23/23 History Past Med/Surg History Medical History Obesity Current smoker HLD (hyperlipidemia) Family History Other Diabetes Heart disease Hypertension Social History Smoking Status: Current every day smoker Tobacco Type: Cigarettes Cigarettes Per Day: 10; Do You Dip or Chew Tobacco: No; Tobacco Cessation Education Requested by Patient: No Hx Alcohol Use: No Hx Substance Use: No Preferred Language: Ecuadorean Communication Ability: Effective Client Relationship Executive Required: No Beliefs That Will Affect Care: None Current Living Situation: Spouse Current Living Situation Comment: with Audrey Feels Safe at Home: Yes Safety Concerns: Feels Safe At This Time Assistive Devices: None Assistive Devices Comment: At home Review of Systems Review of Systems: All systems reviewed & are unremarkable except as noted in HPI & below Physical Exam Physical Exam: General- Not in distress Head- atraumatic Eyes- EOMI. Neck- supple, no JVD. Lungs- clear to auscultation no wheezing or crackles. Heart- regular rate and rhythm; no murmur, no gallop. Abdomen- normal bowel sounds, soft, nontender, no distension. Extremities- no pretibial edema, right wrist cath site ok. Neuro- alert, oriented x 3; EOMI; no facial palsy; no dysarthria; moves extremities. Skin- warm & dry Results & Data Results & Data Vital Signs (Past 12 Hours) Vital Signs Temp Pulse Pulse Resp BP BP Pulse Ox 06/23/23 23:03 85 24 115/73 96 06/23/23 22:48 79 20 134/82 96 06/23/23 22:45 80 28 H 134/82 95 06/23/23 22:44 79 18 95 06/23/23 21:41 147/91 H 06/23/23 21:41 62 20 99 06/23/23 21:40 36.6 C 67 18 147/91 H 98 06/23/23 21:40 65 17 95 06/23/23 21:38 67 18 149/81 H 97 06/23/23 21:30 62 31 H 98 06/23/23 21:30 149/81 H 06/23/23 21:20 86 25 H 97 06/23/23 21:15 73 06/23/23 21:15 62 16 97 06/23/23 21:05 97 06/23/23 21:05 36.6 C 77 18 165/93 H 97 O2 Del Method O2 Flow Rate 06/23/23 23:03 Room Air 06/23/23 22:48 Room Air 06/23/23 22:45 06/23/23 22:44 06/23/23 21:41 06/23/23 21:41 06/23/23 21:40 Room Air 06/23/23 21:40 06/23/23 21:38 Room Air 06/23/23 21:30 06/23/23 21:30 06/23/23 21:20 06/23/23 21:15 06/23/23 21:15 Room Air 06/23/23 21:05 Room Air 0 06/23/23 21:05 Room Air Diagnostic Findings Laboratory Results WBC 13.09 K/ul (4.8-10.8) H 06/23/23 21:07 RBC 4.30 M/uL (4.70-6.10) L 06/23/23 21:07 Hgb 13.6 g/dl (14.0-18.0) L 06/23/23 21:07 POC Hgb 13.3 g/dl (14.0-18.0) L 06/23/23 21:11 Hct 39.8 % (42.0-52.0) L 06/23/23 21:07 POC Hct 39 % (42-52) L 06/23/23 21:11 MCV 92.6 fL (80.0-100.0) 06/23/23 21:07 MCH 31.6 pg (25.0-34.0) 06/23/23 21:07 MCHC 34.2 g/dL (32.0-36.0) 06/23/23 21:07 RDW Std Deviation 43.6 fL (36.4-46.3) 06/23/23 21:07 RDW Coeff of Eddie 12.9 % (11.5-14.5) 06/23/23 21:07 Plt Count 237 K/uL (130-400) 06/23/23 21:07 MPV 9.6 fL (9.4-12.4) 06/23/23 21:07 Immature Gran % (Auto) 0.5 % 06/23/23 21:07 Neut % (Auto) 56.4 % 06/23/23 21:07 Lymph % (Auto) 33.2 % 06/23/23 21:07 [place] % (Auto) 6.7 % 06/23/23 21:07 Eos % (Auto) 2.6 % 06/23/23 21:07 Baso % (Auto) 0.6 % 06/23/23 21:07 Neut # (Auto) 7.38 K/uL (1.40-6.50) H 06/23/23 21:07 Lymph # (Auto) 4.34 K/uL (1.20-3.40) H 06/23/23 21:07 [place] # (Auto) 0.88 K/uL (0.11-0.59) H 06/23/23 21:07 Eos # (Auto) 0.34 K/uL (0.00-0.50) 06/23/23 21:07 Baso # (Auto) 0.08 K/uL (0.00-0.20) 06/23/23 21:07 Immature Gran # (Auto) 0.07 K/uL (0.01-0.20) 06/23/23 21:07 PT 10.6 Seconds (9.0-12.0) 06/23/23 21:07 INR 1.0 (0.9-1.1) 06/23/23 21:07 APTT 22 Seconds (21-31) 06/23/23 21:07 PTT Ratio 0.8 06/23/23 21:07 Activ Coag Time Kaolin 277 SECONDS (94-140) H 06/23/23 22:15 POC Sodium 139 mmol/L (135-144) 06/23/23 21:11 Sodium 138 mmol/L (136-145) 06/23/23 21:07 POC Potassium 3.7 mmol/L (3.3-5.0) 06/23/23 21:11 Potassium 3.7 mmol/L (3.5-5.1) 06/23/23 21:07 POC Chloride 102 mmol/L (101-112) 06/23/23 21:11 Chloride 103 mmol/L (98-107) 06/23/23 21:07 Carbon Dioxide 27 mmol/L (21-32) 06/23/23 21:07 POC Total CO2 27 mmol/L (24-31) 06/23/23 21:11 Anion Gap 8 (3-11) 06/23/23 21:07 POC Anion Gap 14.0 mmol/L (16-25) L 06/23/23 21:11 POC BUN 23 mg/dl (7-18) H 06/23/23 21:11 BUN 26 mg/dl (6-23) H 06/23/23 21:07 Creatinine 1.16 mg/dl (0.6-1.4) 06/23/23 21:07 POC Creatinine 1.2 mg/dl (0.6-1.3) 06/23/23 21:11 Est Cr Clr Drug Dosing 71.5 ml/min 06/23/23 21:07 Est GFR ( Amer) 77.2 ml/min 06/23/23 21:07 Est GFR (Non-Af Amer) 66.7 ml/min 06/23/23 21:07 BUN/Creatinine Ratio 22.4 (10-20) H 06/23/23 21:07 Glucose 196 mg/dl (70-99(Fasting)) H 06/23/23 21:07 POC Glucose 155 mg/dl (70-99) H 06/23/23 23:09 POC Glucose (other) 188 mg/dl (70-99) H 06/23/23 21:11 Calcium 9.5 mg/dl (8.6-10.3) 06/23/23 21:07 POC Ioniz Calcium Billie 1.17 mmol/l (1.12-1.32) 06/23/23 21:11 Total Bilirubin 0.4 mg/dl (0.2-1.0) 06/23/23 21:07 AST 15 U/L (13-39) 06/23/23 21:07 ALT 25 U/L (7-52) 06/23/23 21:07 Alkaline Phosphatase 60 U/L (34-104) 06/23/23 21:07 Troponin I High Sens 13.6 pg/ml (0-20) 06/23/23 21:07 Total Protein 7.0 gm/dl (6.0-8.3) 06/23/23 21:07 Albumin 4.2 gm/dl (3.4-5.0) 06/23/23 21:07 Globulin 2.8 gm/dl (2.5-4.0) 06/23/23 21:07 Albumin/Globulin Ratio 1.5 (0.9-2) 06/23/23 21:07 Lipase 24 U/L (11-82) 06/23/23 21:07 ECG Additional Comments: ECG. Possible ectopic atrial rhythm with rate of 66. ST elevations in leads V1, V2, V3 and V4.
[2023-06-24 03:58] LABS: Basophils # (auto) 0.04 K/uL (0.00-0.20); Basophils % (auto) 0.4 %; Eosinophils # (auto) 0.09 K/uL (0.00-0.50); Eosinophils % (auto) 0.8 %; Hematocrit (blood only) 35.4 % (42.0-52.0); Immature Granulocytes # (auto) 0.05 K/uL (0.01-0.20); Immature Granulocytes % (auto) 0.5 %; Lymphocytes # (auto) 1.61 K/uL (1.20-3.40); Lymphocytes % (auto) 14.9 %; Mean Corpuscular Hemoglobin 32.6 pg (25.0-34.0); Mean Corpuscular Hgb Conc 36.7 g/dL (32.0-36.0); Mean Corpuscular Volume 88.7 fL (80.0-100.0); Mean Platelet Volume 9.6 fL (9.4-12.4); Monocytes # (auto) 0.85 K/uL (0.11-0.59); Monocytes % (auto) 7.8 %; Neutrophils # (auto) 8.19 K/uL (1.40-6.50); Neutrophils % (auto) 75.6 %; Platelet Count 182 K/uL (130-400); RDW Standard Deviation 42.1 fL (36.4-46.3); Red Blood Count 3.99 M/uL (4.70-6.10); White Blood Count 10.83 K/ul (4.8-10.8)
[2023-06-24 04:00] LABS: BUN Creatinine Ratio 29.3 (10-20); Calcium 8.7 mg/dl (8.6-10.3); Chol HDL Ratio 3.1 (0-5); Creatinine Clr Calc Pharmacy 101.2 ml/min; Est GFR (African American) 109.1 ml/min; Est GFR (Non-African American) 94.1 ml/min; Potassium 3.9 mmol/L (3.5-5.1)
--- NOTE | 2023-06-24 07:30 | XRay Report ---
XR chest 1V portable CLINICAL HISTORY: Chest pain, nonspecific. COMPARISON STUDY: Chest radiograph September 12, 2014. FINDINGS: Patient is mildly rotated. No pneumothorax or pleural effusion is noted. There is mild card iomegaly. Pulmonary vascular congestion is present with possible mild pulmonary edema. No consolidati on to suggest pneumonia. IMPRESSION: Cardiomegaly. Pulmonary vascular congestion with possible mild pulmonary edema. ACT 112: Negative or not required by law. Electronically signed by: Gilbert Redman M.D. 06/24/2023 7:28 AM
[2023-06-24 07:32] LABS: Estimated Average Glucose 126 mg/dl
--- NOTE | 2023-06-24 07:35 | Cardiology Consultation ---
Date of Consultation June 24, 2023 Assessment & Plan (1) STEMI (ST elevation myocardial infarction): (2) CAD (coronary artery disease): (3) Hyperlipidemia LDL goal <70: (4) Tobacco abuse: Plan IMPRESSION: 62 year old male with new diagnosis of CAD with STEMI (06/23/2022) Cath revealing single vessel CAD s/p PCI to the LAD Currently chest pain free. Tele without sustained ventricular dysrhythmias. Occasional PVC. PLAN: CAD/STEMI: -Continue DAPT with ASA 81 mg daily and Brilinta 90 mg twice daily for a minimum of 1 year without interruption. ASA will be life long. -Discontinue metoprolol tartrate in favor of metoprolol succinate 25 mg twice daily -Low threshold to add ACEi/ARB with elevation of BP -Continue statin therapy with Lipitor 40 mg daily, can consider Vascepa as an outpatient if TG remain elevated. -Recommend smoking cessation -Echo and EKG from today pending, further recommendations pending results. -No heavy lifting/pushing/pulling, with left arm x3 days. No driving x3 days. Case discussed with Dr. Julio. I spent a total of 40 minutes on the date of service in preparation, delivery, and documentation of the care provided to the patient excluding any time spent in the performance of separately billed services. YENI Alexandre Department of Cardiology, [facility] This chart was completed in part utilizing Speech Voice Recognition Software. Grammatical errors, random word insertions, pronoun errors, and incomplete sentences are an occasional consequence of this system due to software limitations, ambient noise, and hardware issues. Any formal questions or concerns about the content, text, or information contained within the body of this dictation should be directly addressed to the provider for clarification. Supervising Physician Co-Signing Physician Notes Supervising Physician Attestation: I have personally performed a history and physical examination on the patient. I agree with the physician assistant designer's findings and plan as documented with the following additions. Subjective: Pt seen in ICU room 107. Spouse at the bedside pt is comfortable. Denies chest pain or palpitation. Denies shortness of breath. Exam: CV: regular rhythm, no murmurs Right radial procedure site, clean dry and intact Data: EKG performed today 06/24/2023 at 9:12 AM and interpret independently: Anteroseptal infarct pattern with Q waves in leads V1-V4. T wave inversions noted in the high lateral leads I and aVL. Compared to previous, anticipated evolution of anterior WI postintervention observed. Echocardiogram performed 06/24/2023 interpreted independantly: There is mild concentric left ventricular hypertrophy. There is a large sized apical, septal, and anteroseptal wall motion abnormality with hypokinesis of the segments. The left ventricular systolic function is severely reduced, LVEF in the range of 30 to 35%. Grade 1 diastolic dysfunction. No significant valvular disease.- Assessment and Plan: Anterior ST segment elevation myocardial infarction Severe left ventricular systolic dysfunction, LVEF 30-35% Telemetry reveals sinus rhythm in the 60s to 70s. A 4 beat run of nonsustained ventricular tachycardia was observed on 06/24/2023 3:38 AM Dyslipidemia, cigarette smoker Status post emergent cardiac catheterization revealing 100% proximal occlusion of the LAD for which the patient underwent PCI, successful stenting with a 2.75 mm x 22 mm drug-eluting stent. No significant residual disease noted elsewhere. Continue aspirin 81 mg daily, Brilinta 90 mg twice daily, atorvastatin 40 mg daily, metoprolol succinate (dose increased to 25 mg twice daily), atorvastatin 40 mg daily. Smoking cessation advised. Discharge with a Zoll Life Vest a consideration given LV systolic dysfunction and single episode of NSVT. Patient interested in considering , per my initial discussion. Smoking cessation advised as is establishing with cardiac rehabilltation. OK to transfer to PCU. DVT prophylaxis: add Lovenox I spent a total of 25 minutes on the date of service in preparation, delivery, and documentation of the care provided to this patient, excluding any time spent in the performance of separately billed services. History of Present Illness Reason for Consultation: STEMI Requesting Physician: Yennifer barajas Attending Physician: Maxx Whaley MD History of Present Illness 62 year old male who presented to [facility] emergency department last evening due to chest pain that radiated to his left side/arm neck and jaw. Patient developed some slurred speech at that time as well as indigestion and nausea resulting in an episode of emesis. EMS was summoned--initial EKG with peaked T waves in V2 and 3 which progressed to a STEMI on the second EKG. Heart alert initiated and patient underwent cardiac catheterization with Dr. Adrienne Burciaga. Cardiac cath showed single vessel disease with a 100% proximal LAD lesion and underwent successful PCI. Transferred to ICU. Echo this am: PENDING* Upon entrance into the room patient resting in bed. , "Hipolito", at bedside. Currently feeling well without acute concerns. Patient remains chest pain free, no shortness of breath or palpations. Denies lightheadedness. No return of nausea or vomiting. Left wrist tender to touch- no evidence of hematoma. +pulses palpable. Current smoker- quit for 9 years about 10 years ago. Now smoking 1/2 ppd-- interested in quitting, requesting assistance- notes that the gum/patches have not worked in the past. Tele: SR 60-70s with an occasional PVC. PAST MEDICAL HISTORY: Hyperlipidemia Metabolic syndrome COPD with ongoing tobacco use, 1/2 ppd GERD Fatty liver disease Allergies Allergy/AdvReac Type Severity Reaction Status Date / Time Penicillins Allergy Intermediate HIVES Verified 06/23/23 23:02 Home Medications Medication Instructions Recorded Confirmed Type aspirin 81 mg tablet,delayed 81 mg PO DAILY 06/23/23 06/23/23 History release atorvastatin 10 mg tablet 10 mg PO DAILY 06/23/23 06/23/23 History Patient History Medical History Obesity Current smoker HLD (hyperlipidemia) Family History Other Diabetes Heart disease Hypertension Social History Smoking Status: Current every day smoker Tobacco Type: Cigarettes Cigarettes Per Day: 10; Do You Dip or Chew Tobacco: No; Tobacco Cessation Education Requested by Patient: No Hx Alcohol Use: No Hx Substance Use: No Preferred Language: Lebanese Communication Ability: Effective 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 Beliefs That Will Affect Care: None Current Living Situation: Spouse Current Living Situation Comment: with Audrey Feels Safe at Home: Yes Safety Concerns: Feels Safe At This Time Assistive Devices: Denture - Upper and Glasses Assistive Devices Comment: At home Review of Systems Review of Systems: All systems reviewed & are unremarkable except as noted in HPI & below Physical Exam Physical Exam: Temp Pulse Resp BP Pulse Ox O2 Del Method O2 Flow Rate 36.6 C 75 27 H 127/79 96 Room Air 0 06/24/23 07:54 06/24/23 07:30 06/24/23 07:30 06/24/23 07:01 06/24/23 07:30 06/23/23 23:03 06/23/23 21:05 Constitutional: WD/WN, vitals as above ENMT: external ear and nose normal, oropharynx normal Neck: normal visual inspection and trachea midline Respiratory: normal respiratory effort, lungs clear to auscultation Cardiovascular: RRR, no murmur, no edema Heart Sounds: normal S1 and normal S2; no murmur Vessels: no JVD Extremities: no edema Left wrist cath site- clean and dry, no bruising. Dried blood noted. Gastrointestinal (Abdomen): normal bowel sounds, soft, nontender, no hepatosplenomegaly Skin: no rashes, warm and dry Neurologic: PERRL, EOMI, accommodation nl, no face palsy, no dysarthria Psychiatric: A+Ox3, euthymic affect Results & Data Laboratory Results Cardiac Enzymes 06/23/23 06/24/23 Range/Units 21:07 03:25 AST 15 (13-39) U/L Troponin I High Sens 13.6 761587.9 H* D (0-20) pg/ml Coagulation 06/23/23 Range/Units 21:07 PT 10.6 (9.0-12.0) Seconds APTT 22 (21-31) Seconds Lipids 06/24/23 Range/Units 03:25 Triglycerides 282 H (0-150) mg/dl Cholesterol 111 (0-200) mg/dl HDL Cholesterol 36 mg/dl Cholesterol/HDL Ratio 3.1 (0-5) CBC 06/23/23 06/24/23 Range/Units 21:07 03:25 WBC 13.09 H 10.83 H (4.8-10.8) K/ul RBC 4.30 L 3.99 L (4.70-6.10) M/uL Hgb 13.6 L 13.0 L (14.0-18.0) g/dl Hct 39.8 L 35.4 L (42.0-52.0) % Plt Count 237 182 (130-400) K/uL Neut # (Auto) 7.38 H 8.19 H (1.40-6.50) K/uL Lymph # (Auto) 4.34 H 1.61 (1.20-3.40) K/uL [place] # (Auto) 0.88 H 0.85 H (0.11-0.59) K/uL Eos # (Auto) 0.34 0.09 (0.00-0.50) K/uL Baso # (Auto) 0.08 0.04 (0.00-0.20) K/uL Comprehensive Metabolic Panel 06/23/23 06/24/23 Range/Units 21:07 03:25 Sodium 138 135 L (136-145) mmol/L Potassium 3.7 3.9 (3.5-5.1) mmol/L Chloride 103 105 (98-107) mmol/L Carbon Dioxide 27 25 (21-32) mmol/L BUN 26 H 24 H (6-23) mg/dl Creatinine 1.16 0.82 D (0.6-1.4) mg/dl Glucose 196 H 122 H (70-99(Fasting)) mg/dl Calcium 9.5 8.7 (8.6-10.3) mg/dl AST 15 (13-39) U/L ALT 25 (7-52) U/L Alkaline Phosphatase 60 (34-104) U/L Total Protein 7.0 (6.0-8.3) gm/dl Albumin 4.2 (3.4-5.0) gm/dl Intake and Output 06/23/23 06/24/23 06/24/23 22:59 06:59 14:59 Intake Total 500 / 700 200 / 700 Output Total 300 / 300 Balance 500 / 400 -100 / 400 Intake: IV 500 / 500 Sodium Chloride 0.9% 500 ml @ 500 / 500 999 mls/hr IV .Q31M STA Rx#: [id number] Oral 200 / 200 Output: Urine 300 / 300 Other: # Unmeasured Voids 0 Weight 98.3 kg 98.3 kg Weight Measurement Method Built in [facility] (1) STEMI (ST elevation myocardial infarction) Involved coronary artery: LAD coronary artery Qualified Code(s): I21.02 - ST elevation (STEMI) myocardial infarction involving left anterior descending coronary artery (2) CAD (coronary artery disease) Associated angina: unspecified whether angina present Coronary Disease- Associated Artery/Lesion type: [place] artery [place] vs. transplanted heart: [place] heart Qualified Code(s): I25.10 - Atherosclerotic heart disease of [place] coronary artery without angina pectoris
[2023-06-24] MEDS: ASPIRIN 81 MG ECTAB PO SCH (07:42)
[2023-06-24] MEDS: ATORVASTATIN 40 MG TAB PO SCH (07:42)
[2023-06-24] MEDS: TICAGRELOR 90 MG TAB PO SCH ×2 (07:43→20:22)
[2023-06-24] MEDS: ICU Protocol for HYPERglycemia SCH ×4 (07:48→20:40)
--- NOTE | 2023-06-24 08:24 | Critical Care Progress Note ---
Date of Service June 24, 2023 Assessment & Plan (1) HFrEF (heart failure with reduced ejection fraction): (2) Tobacco abuse: (3) Hyperlipidemia LDL goal <70: (4) CAD (coronary artery disease): (5) Metabolic syndrome: (6) STEMI (ST elevation myocardial infarction): Plan Reason Critically Ill: 62 M presents to the EMD for acute onset of chest pain STEMI alert. 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 To ICU for continued hemodynamic and symptom montioring. Neuro - No acute needs CAM ICU: NEGATIVE Cardiac - STEMI s/p LINA to LAD, HLD, Metabolic syndrome - Patient s/p LINA to LAD 06/23/2023 - DAPT therapy per Cardiology- already ordered - ASA/Brilinta -Continue with atorvastatin beta-stephen 2D echo 06/24/2023: EF 30-35%, grade 1 diastolic dysfunction, hypokinesis of the apical septal and anteroseptal wall - Smoking Cessation education will need to be provided- PRN nicotine patch - EKG as needed for chest pain and daily- trend HsCTNI until peak Respiratory - current smoker -- Importance of quitting explained to the patient in depth GI - No acute needs RENAL/LYTES - No acute needs - ICU electrolyte protocol - No acute needs ENDO - Hyperglycemia without diagnosis of diabetes - serum glucose noted >180- will add ACHS accu-checks with ICU hyperglycemic protocol - HGB A1c 6, prediabetic HEME - No acute needs - Leukocytosis likely reactionary ID - NO concerns at this time for acute infective process --Prophylaxis VTE: IPC GI: None Lines: Peripheral Diet: Cardiac Plan: In/out: +400 mL, urine output 300mL Patient does have strong family history of heart problems Tropes peaked at 135,000, trending down Continue with dual antiplatelet therapy Patient hemodynamically stable to be downgrade to med telemetry floor Case discussed with Dr. Real Please note the above document was generated using voice recognition software. It may contain grammatical, syntax or spelling errors.Any formal questions or concerns about the content, text or information contained within the body of this dictation should be directly addressed to the provider for clarification. Admission and Anticipated Discharge Date Admission Date: June 23, 2023 Subjective Patient seen and examined at bedside. No acute distress, notable symptoms overnight Denies any headache, no nausea, no vomiting Finished his breakfast No chest pain. No shortness of breath Patient's partner was also in the room. Review of Systems 2 Review of Systems: All systems reviewed & are unremarkable except as noted in Subjective Physical Exam 2 Physical Exam: Constitutional: No acute distress HEENT: EOMI, PERRLA Respiratory system: Good air entry bilaterally, no wheeze, no rhonchi, no crackles CVS: S1-S2 positive, no murmurs or gallops Abdomen: Soft, nontender, nondistended, positive bowel sounds x4 Extremities: +2 pulses bilaterally radialis/ dorsalis pedis, no cyanosis, no edema Neuro: Awake alert oriented x3 Psych: Normal mood and affect G/U: No [place] Skin: no rashes, warm and dry Lymphatic: no cervical or axillary lymphadenopathy Results & Data Results & Data Vital Signs (Past 12 Hours) Vital Signs Temp Pulse Pulse Resp BP BP Pulse Ox 06/24/23 07:54 36.6 C 06/24/23 07:30 75 27 H 96 06/24/23 07:01 68 22 94 06/24/23 07:01 127/79 06/24/23 07:00 63 20 94 06/24/23 06:01 64 17 95 06/24/23 06:01 136/96 06/24/23 06:00 65 18 95 06/24/23 05:00 145/100 H 06/24/23 05:00 64 21 95 06/24/23 04:14 36.6 C 06/24/23 04:00 136/85 06/24/23 04:00 66 23 94 06/24/23 03:45 68 20 95 06/24/23 03:30 75 17 95 06/24/23 03:15 69 21 95 06/24/23 03:00 104/70 06/24/23 03:00 68 19 96 06/24/23 02:45 68 20 95 06/24/23 02:30 72 24 96 06/24/23 02:15 69 20 95 06/24/23 02:00 120/79 06/24/23 02:00 70 18 94 06/24/23 01:45 73 20 95 06/24/23 01:31 73 06/24/23 01:30 75 20 95 06/24/23 01:15 73 23 95 06/24/23 01:00 132/89 06/24/23 01:00 75 21 94 06/24/23 00:45 75 19 94 06/24/23 00:30 73 21 95 06/24/23 00:15 75 19 95 06/24/23 00:00 75 21 147/90 H 94 06/23/23 23:45 73 19 96 06/23/23 23:30 89 25 H 96 06/23/23 23:15 90 25 H 96 06/23/23 23:13 83 30 H 114/78 95 06/23/23 23:03 85 24 115/73 96 06/23/23 23:00 78 29 H 115/73 95 06/23/23 22:59 36.3 C L 78 16 134/82 96 06/23/23 22:48 79 20 134/82 96 06/23/23 22:45 80 28 H 134/82 95 06/23/23 22:44 79 18 95 06/23/23 21:41 147/91 H 06/23/23 21:41 62 20 99 06/23/23 21:40 36.6 C 67 18 147/91 H 98 06/23/23 21:40 65 17 95 06/23/23 21:38 67 18 149/81 H 97 06/23/23 21:30 62 31 H 98 06/23/23 21:30 149/81 H 06/23/23 21:20 86 25 H 97 06/23/23 21:15 73 06/23/23 21:15 62 16 97 06/23/23 21:05 97 06/23/23 21:05 36.6 C 77 18 165/93 H 97 O2 Del Method O2 Flow Rate 06/24/23 07:54 06/24/23 07:30 06/24/23 07:01 06/24/23 07:01 06/24/23 07:00 06/24/23 06:01 06/24/23 06:01 06/24/23 06:00 06/24/23 05:00 06/24/23 05:00 06/24/23 04:14 06/24/23 04:00 06/24/23 04:00 06/24/23 03:45 06/24/23 03:30 06/24/23 03:15 06/24/23 03:00 06/24/23 03:00 06/24/23 02:45 06/24/23 02:30 06/24/23 02:15 06/24/23 02:00 06/24/23 02:00 06/24/23 01:45 06/24/23 01:31 06/24/23 01:30 06/24/23 01:15 06/24/23 01:00 06/24/23 01:00 06/24/23 00:45 06/24/23 00:30 06/24/23 00:15 06/24/23 00:00 06/23/23 23:45 06/23/23 23:30 06/23/23 23:15 06/23/23 23:13 06/23/23 23:03 Room Air 06/23/23 23:00 06/23/23 22:59 Room Air 06/23/23 22:48 Room Air 06/23/23 22:45 06/23/23 22:44 06/23/23 21:41 06/23/23 21:41 06/23/23 21:40 Room Air 06/23/23 21:40 06/23/23 21:38 Room Air 06/23/23 21:30 06/23/23 21:30 06/23/23 21:20 06/23/23 21:15 06/23/23 21:15 Room Air 06/23/23 21:05 Room Air 0 06/23/23 21:05 Room Air Laboratory Results 06/24/23 03:25 06/24/23 03:25 Coding Level of Care Code 47700 SUB INP/OBS CARE 3/50MIN Diagnoses HFrEF (heart failure with reduced ejection fraction) I50.20 Tobacco abuse Z72.0 Hyperlipidemia LDL goal <70 E78.5 Coronary artery disease involving [place] coronary artery of [place] heart, unspecified whether angina present I25.10 Coronary Disease-Associated Artery/Lesion type: [place] artery [place] vs. transplanted heart: [place] heart Associated angina: unspecified whether angina present Metabolic syndrome E88.810 STEMI (ST elevation myocardial infarction) I21.02 Involved coronary artery: LAD coronary artery (4) CAD (coronary artery disease) Coronary Disease-Associated Artery/Lesion type: [place] artery [place] vs. transplanted heart: [place] heart Associated angina: unspecified whether angina present Qualified Code(s): I25.10 - Atherosclerotic heart disease of [place] coronary artery without angina pectoris (6) STEMI (ST elevation myocardial infarction) Involved coronary artery: LAD coronary artery Qualified Code(s): I21.02 - ST elevation (STEMI) myocardial infarction involving left anterior descending coronary artery
[2023-06-24] MEDS ORDERED: METOPROLOL TARTRATE 25 MG TAB PO SCH (09:00)
--- NOTE | 2023-06-24 12:25 | Hospitalist Progress Note ---
Date of Service June 24, 2023 Assessment & Plan (1) STEMI (ST elevation myocardial infarction): (2) HFrEF (heart failure with reduced ejection fraction): Plan: 62-year-old male with past medical history significant for hyperlipidemia, COPD, reflux esophagitis, fatty liver, hepatitis C virus infection cured after antiviral drug therapy, ongoing tobacco abuse comes in because of chest pain and found to have ST elevated MS Acute ST elevated MS S/p cardiac cath and found 100% LAD lesion status post drug-eluting stent Patient presented with chest pain. EKG on admission personally reviewed; ST elevation in V1 to V3 Lipid profile shows triglyceride of 282, LDL of 19 Echocardiogram shows large size apical, septal and anteroseptal wall motion abnormalities with hypokinesis of the segments. EF of 30 to 35%. Grade 1 diastolic dysfunction Started on DAPT with aspirin, Brilinta. Also started on metoprolol 25 twice daily Also on Lipitor. Okay to transfer to PCU as per cardiology. Given his low EF; will need LifeVest at discharge. Hyperlipidemia On Lipitor Pre-diabetes. HbA1c of 6.0% Diabetic diet Tobacco abuse Counseled regarding smoking cessation. Discussed outpatient follow-up with PCP History of COPD Seems stable Not on any inhalers DVT prophylaxis lovenox. Disposition Transfer out of PCU Full code Time spent evaluating patient, direct bedside care, chart review, placing orders, interpretation of diagnostic studies, discussion with consultants, patient, and family members, as well as other required patient management activities is 50-minute Please note the above document was generated using voice recognition software. It may contain grammatical, syntax or spelling errors. Any formal questions or concerns about the content, text or information contained within the body of this dictation should be directly addressed to the provider for clarification Admission and Anticipated Discharge Date Admission Date: June 23, 2023 Subjective Patient seen and examined at bedside. Comfortable; not in distress. Denies fever, chills, chest pain, shortness of breath, abdominal pain or urinary symptoms. No significant overnight events Telemetry shows sinus rhythm with PVC and PACs Review of Systems Review of Systems: All systems reviewed & are unremarkable except as noted in Subjective Physical Exam Physical Exam: Constitutional: WD/WN, vitals as above, NAD, sitting up in bed, pleasant, conversing easily Respiratory: normal respiratory effort, lungs clear to auscultation, no wheeze, rales, rhonchi. Normal insp/exp effort, no accessory muscle use Cardiovascular: RRR, no murmur, no edema Vessels: no JVD or carotid bruit Chest: normal inspection of chest Abdomen: normal bowel sounds, soft, nontender, no hepatosplenomegaly Musculoskeletal: no cyanosis or clubbing, extremities motor strength 5/5 Skin: no rashes, warm and dry normal turgor Neurologic: PERRL, EOMI, accommodation nl, no face palsy, no dysarthria CN's II- XI intact bilaterally and moves all extremities Psychiatric: A+Ox3, euthymic affect Results & Data Results & Data Vital Signs (Past 12 Hours) Vital Signs Temp Pulse Resp BP Pulse Ox O2 Del Method 06/24/23 12:00 74 22 06/24/23 11:00 116/80 06/24/23 11:00 63 22 95 Room Air 06/24/23 10:00 117/76 06/24/23 10:00 66 28 H 95 06/24/23 09:00 125/83 06/24/23 09:00 70 32 H 94 06/24/23 08:00 134/73 06/24/23 08:00 77 23 95 06/24/23 07:54 36.6 C 06/24/23 07:30 75 27 H 96 06/24/23 07:01 68 22 94 06/24/23 07:01 127/79 06/24/23 07:00 63 20 94 06/24/23 06:01 64 17 95 06/24/23 06:01 136/96 06/24/23 06:00 65 18 95 06/24/23 05:00 145/100 H 06/24/23 05:00 64 21 95 06/24/23 04:14 36.6 C 06/24/23 04:00 136/85 06/24/23 04:00 66 23 94 06/24/23 03:45 68 20 95 06/24/23 03:30 75 17 95 06/24/23 03:15 69 21 95 06/24/23 03:00 104/70 06/24/23 03:00 68 19 96 06/24/23 02:45 68 20 95 06/24/23 02:30 72 24 96 06/24/23 02:15 69 20 95 06/24/23 02:00 120/79 06/24/23 02:00 70 18 94 06/24/23 01:45 73 20 95 06/24/23 01:31 73 06/24/23 01:30 75 20 95 06/24/23 01:15 73 23 95 06/24/23 01:00 132/89 06/24/23 01:00 75 21 94 06/24/23 00:45 75 19 94 06/24/23 00:30 73 21 95 (1) STEMI (ST elevation myocardial infarction) Involved coronary artery: LAD coronary artery Qualified Code(s): I21.02 - ST elevation (STEMI) myocardial infarction involving left anterior descending coronary artery
--- NOTE | 2023-06-24 16:28 | Electrocardiogram Report ---
Test Reason : Blood Pressure : / mmHG Vent. Rate : 064 BPM Atrial Rate : 064 BPM P-R Int : 146 ms QRS Dur : 090 ms QT Int : 390 ms P-R-T Axes : -38 -09 035 degrees QTc Int : 402 ms Unusual P axis, possible ectopic atrial rhythm Poor R wave progression, consider anterior HI vs. lead placement vs. LVH Abnormal ECG When compared with ECG of 02-SEP-2014 09:02, Ectopic atrial rhythm has replaced Sinus rhythm T wave inversion no longer evident in Inferior leads Confirmed by Mitul Mccall ([id number]) on 06/24/2023 4:27:45 PM Referred By: Maxx Whaley Confirmed By:Ross Mccall
--- NOTE | 2023-06-24 16:29 | Electrocardiogram Report ---
Test Reason : Blood Pressure : / mmHG Vent. Rate : 078 BPM Atrial Rate : 078 BPM P-R Int : 180 ms QRS Dur : 090 ms QT Int : 366 ms P-R-T Axes : 053 -06 037 degrees QTc Int : 417 ms Normal sinus rhythm Anteroseptal infarct (cited on or before 23-JUN-2023) Abnormal ECG When compared with ECG of 23-JUN-2023 21:18, (unconfirmed) Sinus rhythm has replaced Ectopic atrial rhythm Serial changes of Anteroseptal infarct Present Confirmed by Mitul Mccall ([id number]) on 06/24/2023 4:29:46 PM Referred By: Maxx Whaley Confirmed By:Ross Mccall
--- NOTE | 2023-06-24 16:31 | Electrocardiogram Report ---
Test Reason : Blood Pressure : / mmHG Vent. Rate : 066 BPM Atrial Rate : 066 BPM P-R Int : 154 ms QRS Dur : 090 ms QT Int : 374 ms P-R-T Axes : -47 -14 028 degrees QTc Int : 392 ms Unusual P axis, possible ectopic atrial rhythm Anteroseptal infarct (cited on or before 23-JUN-2023) ACUTE ND / STEMI Abnormal ECG When compared with ECG of 23-JUN-2023 21:07, (unconfirmed) Serial changes of Anteroseptal infarct Present Confirmed by Mitul Mccall ([id number]) on 06/24/2023 4:30:32 PM Referred By: Maxx Whaley Confirmed By:Ross Mccall
--- NOTE | 2023-06-24 16:35 | Electrocardiogram Report ---
Test Reason : Blood Pressure : / mmHG Vent. Rate : 067 BPM Atrial Rate : 067 BPM P-R Int : 180 ms QRS Dur : 096 ms QT Int : 352 ms P-R-T Axes : 025 -03 088 degrees QTc Int : 371 ms Normal sinus rhythm Anteroseptal infarct (cited on or before 23-JUN-2023) Abnormal ECG When compared with ECG of 23-JUN-2023 22:32, (unconfirmed) Nonspecific T wave abnormality now evident in Lateral leads Confirmed by Mitul Mccall ([id number]) on 06/24/2023 4:35:11 PM Referred By: Maxx Whaley Confirmed By:Ross Mccall
[2023-06-24] MEDS: METOPROLOL SUCC 25MG EXT REL TAB PO SCH (20:22)
--- NOTE | 2023-06-25 07:36 | Cardiology Progress Note ---
Date of Service June 25, 2023 Assessment & Plan (1) STEMI (ST elevation myocardial infarction): (2) HFrEF (heart failure with reduced ejection fraction): (3) Ischemic cardiomyopathy: (4) CAD (coronary artery disease): (5) Hyperlipidemia LDL goal <70: (6) Tobacco abuse: Plan IMPRESSION: 62 year old male with new diagnosis of CAD with anterior STEMI (06/23/2022) Status post emergent cardiac catheterization revealing 100% proximal occlusion of the LAD for which the patient underwent PCI, successful stenting with a 2.75 mm x 22 mm drug-eluting stent. No significant residual disease noted elsewhere. Single 4 beat run of NSVT on 06/24/2023 3:38 AM. PLAN: CAD/STEMI: -Continue DAPT with ASA 81 mg daily and Brilinta 90 mg twice daily for a minimum of 1 year without interruption. ASA will be life long. -Ischemic cardiomyopathy with EF 30-34%-- will need to titrate Goal Directed Medical Therapy. -Continue metoprolol succinate 25 mg twice daily -BP borderline low, however, will cautiously try to add low dose lisinopril 2.5 mg daily. -Discharge with a Zoll Life Vest a consideration given LV systolic dysfunction and single episode of NSVT. -Continue statin therapy with Lipitor 40 mg daily, can consider Vascepa as an outpatient if TG remain elevated. -CHF Edu. -Recommend smoking cessation and establishing with cardiac rehab. -No heavy lifting/pushing/pulling, with left arm x3 days. No driving x3 days. -Will anticipate repeat echo in 3 months as an outpatient to determine need for permanent AICD implantation. Case discussed with Dr. Julio. Will arrange for outpatient cardiology follow up in 1-2 weeks. I spent a total of 30 minutes on the date of service in preparation, delivery, and documentation of the care provided to the patient excluding any time spent in the performance of separately billed services. YENI Alexandre Department of Cardiology, [facility] This chart was completed in part utilizing Speech Voice Recognition Software. Grammatical errors, random word insertions, pronoun errors, and incomplete sentences are an occasional consequence of this system due to software limitations, ambient noise, and hardware issues. Any formal questions or concerns about the content, text, or information contained within the body of this dictation should be directly addressed to the provider for clarification. Admission and Anticipated Discharge Date Admission Date: June 23, 2023 Supervising Physician Co-Signing Physician Notes Supervising Physician Attestation: I have personally performed a history and physical examination on the patient. I agree with the physician digital sales assistant's findings and plan as documented with the following additions. Subjective: Patient seen. Spouse at bedside. He has no acute complaints. Denies lightheadedness or dizziness. Telemetry reveals a 4 beat run of nonsustained ventricular tachycardia that occurred on 06/24/2022 at 18:12. There is also a 4 beat run of nonsustained ventricular tachycardia on 06/24/2023 at 1410. Exam: Cardiovascular: Regular rhythm, no murmurs, no edema Data: Cardiac Enzymes 06/24/23 Range/Units 15:18 Troponin I High Sens 13731.3 H* (0-20) pg/ml CBC 06/25/23 06/25/23 Range/Units 06:48 10:17 WBC Cancelled 7.98 RBC Cancelled 4.31 L Hgb Cancelled 13.5 L Hct Cancelled 39.4 L Plt Count Cancelled 175 Neut # (Auto) Cancelled 5.16 Lymph # (Auto) Cancelled 1.90 [place] # (Auto) Cancelled 0.77 H Eos # (Auto) Cancelled 0.17 Baso # (Auto) Cancelled 0.03 Comprehensive Metabolic Panel 06/25/23 06/25/23 Range/Units 06:48 10:17 Sodium Cancelled 133 L Potassium Cancelled 4.0 Chloride Cancelled 103 Carbon Dioxide Cancelled 25 BUN Cancelled 15 Creatinine Cancelled 0.92 Glucose Cancelled 111 H Calcium Cancelled 9.6 EKG performed today 06/25/2023 reveals sinus rhythm at 71 bpm, Q waves noted in the anterior precordial leads with 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 Assessment and Plan: Anterior, anterolateral ST segment elevation myocardial infarction for which patient underwent emergent cardiac catheterization, placement of proximal LAD stent home 06/23/2023 Severe left ventricular systolic dysfunction noted post procedure, LVEF in the range of 30-35%, with EKG findings suggestive of interval development of LV aneurysm Dyslipidemia Cigarette smoking Nonsustained ventricular tachycardia -Smoking cessation advised. Patient agreeable to nicotine patch. -Continue aspirin, Brilinta, metoprolol succinate 25 mg twice daily. Low-dose lisinopril initiated as blood pressure allows. Continue atorvastatin 40 mg daily. -Patient agreeable to Zoll LifeVest. Order completed, documentation submitted with the help of case management -increase activity -Possible discharge on 06/26/23 if LifeVest arrives. DVT prophylaxis: SQ Lovenox I spent a total of 25 minutes on the date of service in preparation, delivery, and documentation of the care provided to this patient, excluding any time spent in the performance of separately billed services. Roshan Julio, DO Subjective 62 year old male with new diagnosis of CAD with anterior STEMI (06/23/2022) Status post emergent cardiac catheterization revealing 100% proximal occlusion of the LAD for which the patient underwent PCI, successful stenting with a 2.75 mm x 22 mm drug-eluting stent. No significant residual disease noted elsewhere. 06/24: -Echocardiogram performed 06/24/2023 interpreted independently: There is mild concentric left ventricular hypertrophy. There is a large sized apical, septal, and anteroseptal wall motion abnormality with hypokinesis of the segments. The left ventricular systolic function is severely reduced, LVEF in the range of 30 to 35%. Grade 1 diastolic dysfunction. No significant valvular disease. -Tele: Sinus rhythm in the 60s to 70s. A 4 beat run of nonsustained ventricular tachycardia was observed on 06/24/2023 3:38 AM -DAPT with ASA and Brillinta -GDMT: Metoprolol tartrate discontinued in favor of metoprolol succinate 25 mg twice daily 06/25: Upon entrance into the room patient resting in the chair. Just got back from making laps in the hallway. No chest pain, but does have some mild dyspnea-- overall feels fatigue. No palpitations or lightheadedness. No orthopnea or PND. No lower extremity edema. Eager for discharge. Tele: SR 60-80s Review of Systems Review of Systems: All systems reviewed & are unremarkable except as noted in HPI & below Physical Exam Physical Exam: Temp Pulse Resp BP Pulse Ox O2 Del Method O2 Flow Rate 37.0 C 70 18 100/65 96 Room Air 0 06/25/23 11:01 06/25/23 11:01 06/25/23 11:01 06/25/23 11:06/25/23 11:06/25/23 11:06/23/23 21:05 Constitutional: WD/WN, vitals as above ENMT: external ear and nose normal, oropharynx normal Neck: normal visual inspection and trachea midline Respiratory: normal respiratory effort, lungs clear to auscultation Cardiovascular: RRR, no murmur, no edema Heart Sounds: normal S1 and normal S2; no murmur Vessels: no JVD Extremities: no edema Gastrointestinal (Abdomen): normal bowel sounds, soft, nontender, no hepatosplenomegaly Skin: no rashes, warm and dry Neurologic: PERRL, EOMI, accommodation nl, no face palsy, no dysarthria Psychiatric: A+Ox3, euthymic affect Results & Data Vital Signs (Past 12 Hours) Vital Signs Temp Pulse Pulse Resp BP Pulse Ox O2 Del Method 06/25/23 04:06 36.9 C 74 18 106/70 96 Room Air 06/24/23 23:01 37.0 C 76 20 109/67 95 Room Air 06/24/23 22:00 76 (1) STEMI (ST elevation myocardial infarction) Involved coronary artery: LAD coronary artery Qualified Code(s): I21.02 - ST elevation (STEMI) myocardial infarction involving left anterior descending coronary artery (4) CAD (coronary artery disease) Associated angina: unspecified whether angina present Coronary Disease- Associated Artery/Lesion type: [place] artery [place] vs. transplanted heart: [place] heart Qualified Code(s): I25.10 - Atherosclerotic heart disease of [place] coronary artery without angina pectoris
[2023-06-25] MEDS: ATORVASTATIN 40 MG TAB PO SCH (07:57)
[2023-06-25] MEDS: METOPROLOL SUCC 25MG EXT REL TAB PO SCH ×2 (07:57→21:09)
[2023-06-25] MEDS: ENOXAPARIN INJ 40 MG/0.4 ML SYR SQ SCH (07:58)
[2023-06-25] MEDS: ASPIRIN 81 MG ECTAB PO SCH (07:58)
[2023-06-25] MEDS: TICAGRELOR 90 MG TAB PO SCH ×2 (08:25→21:32)
[2023-06-25 10:29] LABS: Hematocrit (blood only) 39.4 % (42.0-52.0); Hemoglobin 13.5 g/dl (14.0-18.0); Mean Corpuscular Hemoglobin 31.3 pg (25.0-34.0); Mean Corpuscular Hgb Conc 34.3 g/dL (32.0-36.0); Mean Corpuscular Volume 91.4 fL (80.0-100.0); Mean Platelet Volume 9.4 fL (9.4-12.4); Platelet Count 175 K/uL (130-400); RDW Coefficient of Variation 13.1 % (11.5-14.5); RDW Standard Deviation 43.8 fL (36.4-46.3); Red Blood Count 4.31 M/uL (4.70-6.10); White Blood Count 7.98 K/ul (4.8-10.8)
[2023-06-25] MEDS: lisinopril 2.5 MG TAB PO SCH (10:31)
[2023-06-25 10:42] LABS: Calcium 9.6 mg/dl (8.6-10.3)
[2023-06-25 10:47] LABS: BUN Creatinine Ratio 16.3 (10-20); Est GFR (African American) 102.2 ml/min; Est GFR (Non-African American) 88.2 ml/min
[2023-06-25 11:28] LABS: Basophils # (auto) 0.03 K/uL (0.00-0.20); Basophils % (auto) 0.4 %; Eosinophils # (auto) 0.17 K/uL (0.00-0.50); Eosinophils % (auto) 2.1 %; Immature Granulocytes # (auto) 0.03 K/uL (0.01-0.20); Immature Granulocytes % (auto) 0.4 %; Lymphocytes % (auto) 23.6 %; Monocytes # (auto) 0.77 K/uL (0.11-0.59); Monocytes % (auto) 9.6 %; Neutrophils # (auto) 5.16 K/uL (1.40-6.50); Neutrophils % (auto) 63.9 %
[2023-06-25 11:34] LABS: Magnesium 2.1 mg/dl (1.7-2.4)
--- NOTE | 2023-06-25 12:21 | Electrocardiogram Report ---
Test Reason : Blood Pressure : / mmHG Vent. Rate : 071 BPM Atrial Rate : 071 BPM P-R Int : 180 ms QRS Dur : 094 ms QT Int : 442 ms P-R-T Axes : 039 033 121 degrees QTc Int : 480 ms Normal sinus rhythm Low voltage QRS Evolving anterior MT T wave abnormality, consider lateral ischemia Abnormal ECG When compared with ECG of 24-JUN-2023 09:12, Serial changes of Anteroseptal infarct Present Confirmed by Mitul Mccall ([id number]) on 06/25/2023 12:21:26 PM Referred By: Maxx Whaley Confirmed By:Ross Mccall
--- NOTE | 2023-06-25 13:31 | Hospitalist Progress Note ---
Date of Service June 25, 2023 Assessment & Plan (1) STEMI (ST elevation myocardial infarction): (2) HFrEF (heart failure with reduced ejection fraction): Plan: 62-year-old male with past medical history significant for hyperlipidemia, COPD, reflux esophagitis, fatty liver, hepatitis C virus infection cured after antiviral drug therapy, ongoing tobacco abuse comes in because of chest pain and found to have ST elevated NM Acute ST elevated NM S/p cardiac cath and found 100% LAD lesion status post drug-eluting stent Patient presented with chest pain. EKG on admission personally reviewed; ST elevation in V1 to V3 Lipid profile shows triglyceride of 282, LDL of 19 Echocardiogram shows large size apical, septal and anteroseptal wall motion abnormalities with hypokinesis of the segments. EF of 30 to 35%. Grade 1 diastolic dysfunction Started on DAPT with aspirin, Brilinta. Also started on metoprolol 25 twice daily Also on Lipitor. Awaiting LifeVest to be placed as EF is low. Hyperlipidemia On Lipitor Pre-diabetes. HbA1c of 6.0% Diabetic diet Tobacco abuse Counseled regarding smoking cessation. Discussed outpatient follow-up with PCP History of COPD Seems stable Not on any inhalers DVT prophylaxis lovenox. Disposition Patient admitted with STEMI status post stent placement. Awaiting LifeVest. Possible DC after LifeVest is applied. Discussed with case management and cardiology Full code Time spent evaluating patient, direct bedside care, chart review, placing orders, interpretation of diagnostic studies, discussion with consultants, patient, and family members, as well as other required patient management activities is 50-minute Please note the above document was generated using voice recognition software. It may contain grammatical, syntax or spelling errors. Any formal questions or concerns about the content, text or information contained within the body of this dictation should be directly addressed to the provider for clarification Admission and Anticipated Discharge Date Admission Date: June 23, 2023 Subjective Patient seen and examined at bedside. He is comfortable lying in the bed; not in any distress. Telemetry shows normal sinus rhythm. Review of Systems Review of Systems: All systems reviewed & are unremarkable except as noted in Subjective Physical Exam Physical Exam: Constitutional: WD/WN, vitals as above, NAD, sitting up in bed, pleasant, conversing easily Respiratory: normal respiratory effort, lungs clear to auscultation, no wheeze, rales, rhonchi. Normal insp/exp effort, no accessory muscle use Cardiovascular: RRR, no murmur, no edema Vessels: no JVD or carotid bruit Chest: normal inspection of chest Abdomen: normal bowel sounds, soft, nontender, no hepatosplenomegaly Musculoskeletal: no cyanosis or clubbing, extremities motor strength 5/5 Skin: no rashes, warm and dry normal turgor Neurologic: PERRL, EOMI, accommodation nl, no face palsy, no dysarthria CN's II- XI intact bilaterally and moves all extremities Psychiatric: A+Ox3, euthymic affect Results & Data Results & Data Vital Signs (Past 12 Hours) Vital Signs Temp Pulse Pulse Resp BP Pulse Ox O2 Del Method 06/25/23 11:01 37.0 C 70 18 100/65 96 Room Air 06/25/23 08:00 Room Air 06/25/23 08:00 64 06/25/23 08:00 36.9 C 73 18 118/75 95 Room Air 06/25/23 04:06 36.9 C 74 18 106/70 96 Room Air (1) STEMI (ST elevation myocardial infarction) Involved coronary artery: LAD coronary artery Qualified Code(s): I21.02 - ST elevation (STEMI) myocardial infarction involving left anterior descending coronary artery
[2023-06-25] MEDS: NICOTINE 21 MG/24 HR TDSY TD SCH (15:34)
[2023-06-25] MEDS ORDERED: MAGNESIUM HYDROXIDE SUSP 30 ML UDC PO ONE (18:19)
[2023-06-25] MEDS ORDERED: MELATONIN 3 MG TAB PO PRN (20:53)
[2023-06-26 07:57] LABS: Basophils # (auto) 0.04 K/uL (0.00-0.20); Basophils % (auto) 0.6 %; Eosinophils # (auto) 0.17 K/uL (0.00-0.50); Eosinophils % (auto) 2.3 %; Hematocrit (blood only) 36.4 % (42.0-52.0); Immature Granulocytes # (auto) 0.02 K/uL (0.01-0.20); Immature Granulocytes % (auto) 0.3 %; Lymphocytes # (auto) 1.49 K/uL (1.20-3.40); Lymphocytes % (auto) 20.6 %; Mean Corpuscular Hemoglobin 31.9 pg (25.0-34.0); Mean Corpuscular Hgb Conc 35.7 g/dL (32.0-36.0); Mean Corpuscular Volume 89.2 fL (80.0-100.0); Mean Platelet Volume 9.8 fL (9.4-12.4); Monocytes # (auto) 0.61 K/uL (0.11-0.59); Monocytes % (auto) 8.4 %; Neutrophils # (auto) 4.91 K/uL (1.40-6.50); Neutrophils % (auto) 67.8 %; Platelet Count 161 K/uL (130-400); RDW Coefficient of Variation 13.1 % (11.5-14.5); RDW Standard Deviation 42.4 fL (36.4-46.3); Red Blood Count 4.08 M/uL (4.70-6.10); White Blood Count 7.24 K/ul (4.8-10.8)
[2023-06-26 08:20] LABS: Calcium 9.3 mg/dl (8.6-10.3); Potassium 4.2 mmol/L (3.5-5.1)
[2023-06-26 08:25] LABS: BUN Creatinine Ratio 19.1 (10-20); Creatinine Clr Calc Pharmacy 93.3 ml/min; Est GFR (African American) 105.5 ml/min
[2023-06-26 08:55] VITALS: O2SAT 96
[2023-06-26] MEDS: lisinopril 2.5 MG TAB PO SCH (09:01)
[2023-06-26] MEDS: NICOTINE 21 MG/24 HR TDSY TD SCH (09:01)
[2023-06-26] MEDS: ATORVASTATIN 40 MG TAB PO SCH (09:01)
[2023-06-26] MEDS: METOPROLOL SUCC 25MG EXT REL TAB PO SCH (09:01)
[2023-06-26] MEDS: ASPIRIN 81 MG ECTAB PO SCH (09:02)
[2023-06-26] MEDS: ENOXAPARIN INJ 40 MG/0.4 ML SYR SQ SCH (09:02)
[2023-06-26] MEDS: TICAGRELOR 90 MG TAB PO SCH (09:09)
--- NOTE | 2023-06-26 11:29 | Electrocardiogram Report ---
Test Reason : Blood Pressure : / mmHG Vent. Rate : 070 BPM Atrial Rate : 070 BPM P-R Int : 186 ms QRS Dur : 094 ms QT Int : 444 ms P-R-T Axes : 041 044 118 degrees QTc Int : 479 ms Normal sinus rhythm Anteroseptal infarct (cited on or before 23-JUN-2023) ST segement changes consistent with acute injury or evolving infarct Abnormal ECG When compared with ECG of 25-JUN-2023 05:03, No significant change was found Confirmed by Mitul Mccall ([id number]) on 06/26/2023 11:29:09 AM Referred By: Maxx Whaley Confirmed By:Ross Mccall
--- NOTE | 2023-06-26 11:48 | Cardiology Progress Note ---
Date of Service June 26, 2023 Assessment & Plan (1) STEMI (ST elevation myocardial infarction): (2) HFrEF (heart failure with reduced ejection fraction): (3) Ischemic cardiomyopathy: (4) CAD (coronary artery disease): (5) Hyperlipidemia LDL goal <70: (6) Tobacco abuse: Plan IMPRESSION: 62 year old male with new diagnosis of CAD with anterior STEMI (06/23/2022) Status post emergent cardiac catheterization revealing 100% proximal occlusion of the LAD for which the patient underwent PCI, successful stenting with a 2.75 mm x 22 mm drug-eluting stent. No significant residual disease noted elsewhere. Single 4 beat run of NSVT on 06/24/2023 3:38 AM. No further arrhythmias PLAN: CAD/STEMI: -Continue DAPT with ASA 81 mg daily and Brilinta 90 mg twice daily for a minimum of 1 year without interruption. ASA will be life long. -Ischemic cardiomyopathy with EF 30-34%-- will need to titrate Goal Directed Medical Therapy. -Continue metoprolol succinate 25 mg twice daily -BP borderline low, however, will cautiously try to add low dose lisinopril 2.5 mg daily. -Discharge with a Zoll Life Vest a consideration given LV systolic dysfunction and single episode of NSVT. -Continue statin therapy with Lipitor 40 mg daily, can consider Vascepa as an outpatient if TG remain elevated. -CHF Edu. -Recommend smoking cessation and establishing with cardiac rehab. -No heavy lifting/pushing/pulling, with left arm x3 days. No driving x3 days. -Will anticipate repeat echo in 2-3 months as an outpatient to determine need for permanent AICD implantation. Plan as above remains ongoing. Medications and indications for ongoing use discussed in detail Patient arlen will not return to smoking Follow-up as already arranged as outpatient and LifeVest placed Stable for discharge later today I spent a total of 30 minutes on the date of service in preparation, delivery, and documentation of the care provided to the patient excluding any time spent in the performance of separately billed services. This chart was completed in part utilizing Speech Voice Recognition Software. Grammatical errors, random word insertions, pronoun errors, and incomplete sentences are an occasional consequence of this system due to software limitations, ambient noise, and hardware issues. Any formal questions or concerns about the content, text, or information contained within the body of this dictation should be directly addressed to the provider for clarification. Admission and Anticipated Discharge Date Admission Date: June 23, 2023 Subjective Patient was seen and personally examined. Chart medications, telemetry re viewed. Patient ambulatory in the hallway earlier today. No chest pain shortness of breath dizziness or lightheadedness. Telemetry without arrhythmia Fit for LifeVest this morning Review of Systems Review of Systems: All systems reviewed & are unremarkable except as noted in Subjective Physical Exam Physical Exam: Temp Pulse Resp BP Pulse Ox O2 Del Method O2 Flow Rate 37.0 C 70 18 100/65 96 Room Air 0 06/25/23 11:06/25/23 11:06/25/23 11:06/25/23 11:06/25/23 11:06/25/23 11:06/23/23 21:05 Constitutional: WD/WN, vitals as above ENMT: external ear and nose normal, oropharynx normal Neck: normal visual inspection and trachea midline Respiratory: normal respiratory effort, lungs clear to auscultation Cardiovascular: RRR, no murmur, no edema Heart Sounds: normal S1 and normal S2; no murmur Vessels: no JVD Extremities: no edema Gastrointestinal (Abdomen): normal bowel sounds, soft, nontender, no hepatosplenomegaly Skin: no rashes, warm and dry Neurologic: PERRL, EOMI, accommodation nl, no face palsy, no dysarthria Psychiatric: A+Ox3, euthymic affect Results & Data Vital Signs (Past 12 Hours) Vital Signs Temp Pulse Pulse Resp BP Pulse Ox O2 Del Method 06/26/23 08:53 36.7 C 76 18 107/69 96 Room Air 06/26/23 07:40 77 06/26/23 04:03 36.7 C 66 20 92/53 L 93 Room Air Laboratory Results Laboratory Results - last 24 hr 06/25/23 06/25/23 06/26/23 16:16 19:56 07:14 WBC 7.24 RBC 4.08 L Hgb 13.0 L Hct 36.4 L MCV 89.2 MCH 31.9 MCHC 35.7 RDW Std Deviation 42.4 RDW Coeff of Eddie 13.1 Plt Count 161 MPV 9.8 Immature Gran % (Auto) 0.3 Neut % (Auto) 67.8 Lymph % (Auto) 20.6 [place] % (Auto) 8.4 Eos % (Auto) 2.3 Baso % (Auto) 0.6 Neut # (Auto) 4.91 Lymph # (Auto) 1.49 [place] # (Auto) 0.61 H Eos # (Auto) 0.17 Baso # (Auto) 0.04 Immature Gran # (Auto) 0.02 Sodium 135 L Potassium 4.2 Chloride 104 Carbon Dioxide 25 Anion Gap 6 BUN 17 Creatinine 0.89 Est Cr Clr Drug Dosing 93.3 Est GFR ( Amer) 105.5 Est GFR (Non-Af Amer) 91.0 BUN/Creatinine Ratio 19.1 Glucose 112 H POC Glucose 98 128 H Calcium 9.3 06/26/23 06/26/23 07:22 11:16 WBC RBC Hgb Hct MCV MCH MCHC RDW Std Deviation RDW Coeff of Eddie Plt Count MPV Immature Gran % (Auto) Neut % (Auto) Lymph % (Auto) [place] % (Auto) Eos % (Auto) Baso % (Auto) Neut # (Auto) Lymph # (Auto) [place] # (Auto) Eos # (Auto) Baso # (Auto) Immature Gran # (Auto) Sodium Potassium Chloride Carbon Dioxide Anion Gap BUN Creatinine Est Cr Clr Drug Dosing Est GFR ( Amer) Est GFR (Non-Af Amer) BUN/Creatinine Ratio Glucose POC Glucose 112 H 100 H Calcium (1) STEMI (ST elevation myocardial infarction) Involved coronary artery: LAD coronary artery Qualified Code(s): I21.02 - ST elevation (STEMI) myocardial infarction involving left anterior descending [place] artery (4) CAD (coronary artery disease) Coronary Disease-Associated Artery/Lesion type: [place] artery [place] vs. transplanted heart: [place] heart Associated angina: unspecified whether angina present Qualified Code(s): I25.10 - Atherosclerotic heart disease of [place] coronary artery without angina pectoris
[2023-06-26 12:01] VITALS: BP 114/79; PULSE 77; RESP 19; TEMP 97.7
--- NOTE | 2023-06-26 13:04 | Discharge Summary ---
Date of Service June 26, 2023 Admission HPI Per Admitting Provider 62-year-old male with past medical history significant for hyperlipidemia, COPD, reflux esophagitis, fatty liver, hepatitis C virus infection cured after antiviral drug therapy, ongoing tobacco abuse comes in because of chest pain and found to have ST elevated CT. Patient was watching football at 8 PM when he noticed pain in center of chest 7/10 severity radiating to his throat and head and he also episode of nausea and vomiting. Came to the ER and found to acute STEMI s/p cardiac cath and stent to the LAD. Currently pain resolved. Resting comfortably. Hemodynamically stable. Denies any headache. No blurred visions. No earache or runny nose or sore throat. No cough. Appetite is okay. No shortness of breath. No abdominal pain. Normal bowel and bladder movements. Prior to this episode he was ambulating and climbing steps okay as per patient. Past medical history. As mentioned above. Past surgical history. Colonoscopy. Laparoscopic right hemicolectomy for tubular adenoma of the hepatic flexure involving 50% circumflex. Appendectomy. Cholecystectomy. Social history. . Smokes half pack a day for last 30 years. No alcohol use. No drug use. Family history. Father had pneumonia. Paraplegia/stab wound. Mother had CT. Brother had prostate cancer. Sister had stroke. Admission Exam Per Admitting Provider General- Not in distress Head- atraumatic Eyes- EOMI. Neck- supple, no JVD. Lungs- clear to auscultation no wheezing or crackles. Heart- regular rate and rhythm; no murmur, no gallop. Abdomen- normal bowel sounds, soft, nontender, no distension. Extremities- no pretibial edema, right wrist cath site ok. Neuro- alert, oriented x 3; EOMI; no facial palsy; no dysarthria; moves extremities. Skin- warm & dry Principal Diagnosis STEMI Discharge Exam Constitutional: WD/WN, vitals as above, NAD, sitting up in chair, pleasant, conversing easily Respiratory: normal respiratory effort, lungs clear to auscultation, no wheeze, rales, rhonchi. Normal insp/exp effort, no accessory muscle use Cardiovascular: RRR, no murmur, no edema Vessels: no JVD or carotid bruit Chest: normal inspection of chest Abdomen: normal bowel sounds, soft, nontender, no hepatosplenomegaly Musculoskeletal: no cyanosis or clubbing, extremities motor strength 5/5 Skin: no rashes, warm and dry normal turgor Neurologic: PERRL, EOMI, accommodation nl, no face palsy, no dysarthria CN's II- XI intact bilaterally and moves all extremities Psychiatric: A+Ox3, euthymic affect Discharge Data Allergies Allergy/AdvReac Type Severity Reaction Status Date / Time Penicillins Allergy Intermediate HIVES Verified 06/23/23 23:02 Consultations 06/23/23 22:00 ED Decision to Admit Stat 06/23/23 22:42 Consult Cardiology Routine Consult Food Service Employee Routine Procedures Performed Operation Date: 06/23/23 22:00 Actual Procedures p Cineradiography w/Routine Exam - Adrienne Burciaga MD p Cath, Left with Cors and Vent - Adrienne Burciaga MD s Drug Eluting Stent SGl Vessel - Adrienne Burciaga MD Ordered Studies 06/23/23 21:41 CL Cath Imgs for PACS use only Stat Hospital Course (1) STEMI (ST elevation myocardial infarction): (2) HFrEF (heart failure with reduced ejection fraction): Per prior attending with addendum: 62-year-old male with past medical history significant for hyperlipidemia, COPD, reflux esophagitis, fatty liver, hepatitis C virus infection cured after antiviral drug therapy, ongoing tobacco abuse comes in because of chest pain and found to have ST elevated CT Acute ST elevated CT S/p cardiac cath and found 100% LAD lesion status post drug-eluting stent Patient presented with chest pain. EKG on admission personally reviewed; ST elevation in V1 to V3 Lipid profile shows triglyceride of 282, LDL of 19 Echocardiogram shows large size apical, septal and anteroseptal wall motion abnormalities with hypokinesis of the segments. EF of 30 to 35%. Grade 1 diastolic dysfunction Started on DAPT with aspirin, Brilinta. Also started on metoprolol 25 twice daily Also on Lipitor. Awaiting LifeVest to be placed as EF is low. Hyperlipidemia On Lipitor Pre-diabetes. HbA1c of 6.0% Diabetic diet Tobacco abuse Counseled regarding smoking cessation. Discussed outpatient follow-up with PCP History of COPD Seems stable Not on any inhalers DVT prophylaxis lovenox. Disposition Patient admitted with STEMI status post stent placement. Awaiting LifeVest. P ossible DC after LifeVest is applied. Discussed with case management and cardiology Full code Time spent evaluating patient, direct bedside care, chart review, placing orders, interpretation of diagnostic studies, discussion with consultants, patient, and family members, as well as other required patient management activities is 50-minute Please note the above document was generated using voice recognition software. It may contain grammatical, syntax or spelling errors. Any formal questions or concerns about the content, text or information contained within the body of this dictation should be directly addressed to the provider for clarification Addendum 06/26/2023: Patient was seen and examined at bedside. Patient hemodynamically stable, denies any chest pain. Status post stent placement. Patient reports feeling better. Patient was explained the concept of LifeVest and the need for goal-directed medical therapy and the need for repeat echo in 2 to 3 months to re-assess his heart function. Patient and his voiced understanding. They are aware that they need to closely follow-up with heart doctor upon discharge. They are also aware that they need to maintain heart healthy diet and low-salt diet. They are aware that he is prediabetic and he will need to incorporate lifestyle modification as discussed and follow-up with PCP for long-term monitoring of his A1c/necessary counseling. He is being discharged with following instruction at the point of discharge: You were admitted here with a heart attack. You underwent cardiac catheteriz ation revealing 100% proximal occlusion of the LAD for which you underwent placement of stent with LINA. You were prescribed following medications; 1) Take aspirin once a day and Brilinta twice a day. This is very important. Recommend not to break in the continuity of this treatment without consulting your heart doctor. 2) Start taking lisinopril 2.5 mg once a day 3) Metoprolol 25 mg twice a day 4) Lipitor 40 mg once a day. The dose has been increased from 10 mg to 40 mg. An appointment will be set up with your primary care doctor. You will also get a call from cardiology office regarding the appointment. Follow-up with cardiology in 1 to 2 weeks time upon discharge. You will need to set up with cardiac rehab upon discharge, coordinate with your PCP office. Recommend smoking cessation and no heavy lifting/pushing/pulling with left arm into 3 days[address] No driving into 3 days. You will need repeat echo in 2 to 3 months time as discussed at the bedside, coordinate with your cardiology office to set up the test. Take your medications as prescribed. Please make sure that you are able to get your medications today by calling your pharmacy before you leave the hospital so that your treatment continuity is not broken. Home Health Attestation I certify that this patient is under my care and that I, or a physicians curatorial assistant working with me, had a face to-face encounter that meets the home health [id number] encounter requirements with this patient. The encounter with the patient was in whole, or in part, for the following m edical condition, which is the primary reason for home health care (list medical condition): I certify that, based on my findings, the following services are medically nece ssary home health services: My clinical findings support the need for the above services because: Further, I certify that my clinical findings support that this patient is homebound (i.e. absences from home require considerable and taxing effort and are for medical reasons or caodaism services or infrequently or of short duration when for other reasons) because: Certification for Home Health Services: Based on the above findings, I certify that this patient is confined to the home and needs intermittent alf care, physical therapy and/or speech therapy or continues to need occupational therapy. The patient is under my care, and I have initiated the establishment of the plan of care. This patient will be followed by a physician who will periodically review the plan of care. Total Time Total Time Spent Total Time Spent (In Minutes): 45 Discharge Plan Discharge Items Patient Disposition: Home - Self-Care Reason For Visit: STEMI Discharge Diagnosis: STEMI status post LINA to LAD Activity: Resume your previous activity Non-emergency contact: Primary Care Provider Call non-emergency contact if: you have any medication questions and your symptoms worsen Follow-up/Referrals: Williams Alston MD [Primary Care Provider] - (Date & Time 06/28/2023 11:10 AM Provider Marianna Franks DO Department Family Medicine [facility] ) Ayanna Olson CRNP [Nurse Practitioner] - (Date & Time 07/15/2023 10:00 AM Provider Ayanna Olson CRNP Department Cardiology, [facility] ) Diet: Heart Healthy and Low Sodium (2gm) Addtl Attending Provider Instructions: You were admitted here with a heart attack. You underwent cardiac catheterization revealing 100% proximal occlusion of the LAD for which you underwent placement of stent with LINA. You were prescribed following medications; 1) Take aspirin once a day and Brilinta twice a day. This is very important. Recommend not to break in the continuity of this treatment without consulting your heart doctor. 2) Start taking lisinopril 2.5 mg once a day 3) Metoprolol 25 mg twice a day 4) Lipitor 40 mg once a day. The dose has been increased from 10 mg to 40 mg. An appointment will be set up with your primary care doctor. You will also get a call from cardiology office regarding the appointment. Follow-up with cardiology in 1 to 2 weeks time upon discharge. You will need to set up with cardiac rehab upon discharge, coordinate with your PCP office. Recommend smoking cessation and no heavy lifting/pushing/pulling with left arm into 3 days[address] No driving into 3 days. You will need repeat echo in 2 to 3 months time as discussed at the bedside, coordinate with your cardiology office to set up the test. Take your medications as prescribed. Please make sure that you are able to get your medications today by calling your pharmacy before you leave the hospital so that your treatment continuity is not broken. Addtl Materials Recycler Provider Instructions: Call 911 and go to the Emergency Room if: * You have tightness or pain in your chest that does not go away with rest or Nitroglycerin * You are very short of breath even with rest Call your doctor if any of the following symptoms or problems start or get worse: * Shortness of breath or difficulty breathing * Wake up at night short of breath * Chest pain * Cough * Swelling of your hands, fee, or legs * More fatigued or tired with your normal activity * Palpitations - sudden fast heart beats WEIGHT * Weigh yourself every morning after using the bathroom. * Use the same scale. * Wear the same amount of clothing. * Write your weight down on your chart. * Call your doctor if you gain more than 2-3 pounds in 1-2 days. MEDICATIONS * Use this discharge instruction sheet for instructions. * Take your medications at the time your doctor ordered. * Do not skip a dose of your medicines. * If you miss a dose of medicine, take as soon as possible, but DO NOT DOUBLE A DOSE. * Read your medicine information when you get home. * Know all of the side effects of your medicine. * Call your doctor's office if you have any side effects. * Be sure all of your doctors know what medicine and herbs you take (including cold, flu, and herbal medicine). * Pain Medicine: If you do not get relief from your pain, please call your doctor for help. Take the following with you to your follow-up doctor appointments: * Weight Chart * Medication List * List of questions Do not drink excessive alcohol, beer or wine. Pending Studies at Discharge: No Stand-Alone Forms: My [facility], Smoking Cessation Medications and DC Order Prescriptions: New atorvastatin 40 mg Tablet 40 mg PO QAM Qty: 30 0RF metoprolol succinate 25 mg Tablet Extended Release 24 Hr 25 mg PO BID Qty: 60 0RF lisinopril 2.5 mg Tablet 2.5 mg PO QAM Qty: 30 0RF nicotine [Nicoderm CQ] 21 mg/24 hr Patch 24 Hour 21 mg transdermal QAM Qty: 28 0RF Brilinta 90 mg tablet 90 mg PO BID Qty: 60 0RF Continued aspirin 81 mg Tablet,Delayed Release (Dr/Ec) 81 mg PO DAILY Qty: 30 0RF Discontinued atorvastatin 10 mg tablet 10 mg PO DAILY Discharge Orders: Discharge Order- CHF (Routine); Ordered 06/26/23 Ordered By: Dhaval Hall/Other Patient Handouts: Prediabetes, 5 Steps for Eating Healthier Admission Data Admit Date/Time: 06/23/23 22:14 Attending Provider: Dhaval Carreon Admit Provider: Maxx Whaley Primary Care Provider: Williams Alston Other Providers: Maxx Whaley; Ayanna Vora; Roshan Julio; Berto Ambrosio; Doron Rhodes; Damián Maynard; Steve Hylton; Shanelle Templeton; Molly Quan; Ayanna Olson; Quinton Mota; Akash Del Rio; Aranza Razo; Aleyda So; César Amaro; Bryan Sanford; Eddie Miranda Other Interventions: Discharge Summary Assessment (RN) Last Done: 06/26/23 12:13
== END 2023-06-26 13:38 | disposition home or self-care (01) | DRG 322 ==
LOC: ED 21:01 → CC 22:00 → 1E 22:14 → SUATTDRO 22:14 → 2S 06-24 14:52
DX: I50.20 Unspecified systolic (congestive) heart failure; I21.02 ST elevation (STEMI) myocardial infarction involving left anterior descending coronary artery; I25.10 Atherosclerotic heart disease of native coronary artery without angina pectoris; J44.9 Chronic obstructive pulmonary disease, unspecified; Z88.0 Allergy status to penicillin; E88.810 Metabolic syndrome; K76.0 Fatty (change of) liver, not elsewhere classified; K21.00 Gastro-esophageal reflux disease with esophagitis, without bleeding; E78.5 Hyperlipidemia, unspecified; I25.5 Ischemic cardiomyopathy; I11.0 Hypertensive heart disease with heart failure; I47.19 Other supraventricular tachycardia; Z79.82 Long term (current) use of aspirin; Z86.19 Personal history of other infectious and parasitic diseases; F17.210 Nicotine dependence, cigarettes, uncomplicated; R73.9 Hyperglycemia, unspecified